=== PATIENT | male | born 1955 | race Caucasian/White ===

== ENCOUNTER → 2020-01-12 11:51 | Outpatient (CLI) | payer OTHER, SELFPAY ==
[2020-01-12 12:43] LABS: Basophils # 0.1 K/mm3 (0-0.2); Basophils % 1.1 % (0.1-2.0); Eosinophils # 0.5 K/mm3 (0.0-0.4); Eosinophils % 5.3 % (0.1-12.0); Hematocrit 49.2 % (42.0-52.0); Hemoglobin 15.9 g/dL (14.1-18.0); Lymphocytes # 2.9 K/mm3 (0.7-4.5); Lymphocytes % 30.2 % (10-50); Mean Corpuscular HGB Conc 32.3 g/dL (31.8-35.4); Mean Corpuscular Volume 89.8 fl (80-94); Mean Platelet Volume 9.1 fl (7.4-10.4); Monocytes # 0.6 K/mm3 (0.1-1.0); Monocytes % 6.2 % (1.7-9.3); Neutrophils # 5.5 K/mm3 (1.8-7.8); Neutrophils % 57.2 % (37.0-80.0); Platelet Count 205 K/mm3 (142-424); Red Blood Count 5.47 M/mm3 (4.60-6.20); Red Cell Distribution Width 14.8 % (11.5-17.5); White Blood Count 9.6 K/mm3 (4.8-10.8)
[2020-01-12 12:55] LABS: Hemoglobin A1C 8.8 % (4.0-6.0)
[2020-01-12 13:02] LABS: Alanine Aminotransferase 25 U/L (12-78); Albumin Level 3.8 g/dl (3.5-5.0); Alkaline Phosphatase 132 U/L (38-126); Anion Gap 9.1 mEq/L (5-15); Aspartate Amino Transferase 22 U/L (17-59); Bilirubin,Direct 0.1 mg/dl (0.0-0.4); Bilirubin,Indirect 0.3 mg/dL (0.0-0.9); Bilirubin,Total 0.4 mg/dl (0.2-1.3); Bilirubin,Unconjugated 0.3 mg/dL (0.0-1.1); Blood Urea Nitrogen 20 mg/dl (9-20); Calcium 10.1 mg/dl (8.4-10.2); Carbon Dioxide 29 mmol/L (22.0-30.0); Chloride 99 mmol/L (98-107); Cholesterol 217 mg/dl (140-200); Estimated Glomerular Filt Rate 75 ml/min (>60); GFR (African American) 91 ML/MIN (>60); Glucose 271 mg/dl (74-100); HDL Cholesterol 36 mg/dl (40-60); Potassium 4.1 mmoL/L (3.5-5.1); Sodium 133 mmol/L (136-145); Total Protein,Serum 7.2 g/dl (6.3-8.2); Triglycerides 397 mg/dl (30-150); VLDL Cholesterol 79 mg/dL (0-40)
[2020-01-12 13:19] LABS: Direct LDL Cholesterol 152.01 mg/dL (100-129)
[2020-01-12 13:21] LABS: Free Thyroxine Index 2.4 ug/dL (5.93-13.13); T4 (Thyroxine) 7.2 ug/dl (5.53-11.0); Triiodothryronine (T3) Uptake 34 % (23.5-40.5)
[2020-01-12 13:34] LABS: Prostate Specific Ag Screen 2.5 ng/ml (0.0-4.0)
[2020-01-12 13:35] LABS: Thyroid Stimulating Hormone 2.79 uIU/mL (0.465-4.68)
== END ==
PROVIDERS: Visit Provider Internal Medicine
DX: R06.02 Shortness of breath (principal); I25.10 Atherosclerotic heart disease of native coronary artery without angina pectoris; I11.0 Hypertensive heart disease with heart failure; I24.1 Dressler's syndrome; E78.49 Other hyperlipidemia; I25.5 Ischemic cardiomyopathy; R60.0 Localized edema; F17.200 Nicotine dependence, unspecified, uncomplicated; I50.22 Chronic systolic (congestive) heart failure; I77.9 Disorder of arteries and arterioles, unspecified; E11.9 Type 2 diabetes mellitus without complications; Z79.4 Long term (current) use of insulin
CPT/HCPCS: 36415; 80048; 80061; 80076; 83036; 84436; 84443; 84479; 85025; G0103

== ENCOUNTER → 2020-01-20 10:43 | Outpatient (CLI) | payer OTHER, SELFPAY ==
--- NOTE | 2020-01-20 | CA_ITS ---
APPROVED REPORT Exam: Pharmacologic Technologist: Gloria Mitchell Ht: 5 ft 8 in Wt: 183 lbs BSA: 1.97 m2 HR: 80 bpm BP: 112/72 mmHg Indications: Shortness of Air Medical History Medications: Lisinopril,,,,, Furosemide (LASIX),,,,, Aspirin,,,,, Atorvastatin,,,,, Carvedilol,,,,, INSULIN,,,,, DulOXETINE,,,,, Magnesium,,,,, Prasugrel,,,,, TAdalafil,,,,, Stress Test Details Test: LEXISCAN HR Resting HR: 78 bpm Max Heart Rate (APMHR): 157 bpm Max HR Achieved: 93 bpm Target HR (85% APMHR): 133 bpm % of APMHR: 59 Recovery HR: 89 bpm BP Resting BP: 112/72 mmHg Max BP: 112/72 mmHg Recovery BP: 107.0/68.0 mmHg ECG Clinical Exercise duration: 04:00 min Highest Stage Achieved: Exercise capacity: 1.0 METs Stress ECG Conclusion Resting ECG: Normal sinus rhythm, diffuse T wave abnormalities, possible strain pattern, PVC Symptoms: Shortness of air, mild nausea, no chest pain. Arrhythmias/Ectopy: Rare PVC ST-T Changes: mild exaggeration of baseline abnormalities. Conclusion: Non-diagnostic Lexiscan stress. Myoview images reported separately. Test Summary REST . . . . . . . Resting REST 04:37 . . 78 . 112/ 72 . . Stage 1 . . . . . . . Myoview Injected Stage 1 01:00 . . 82 . . . . Stage 2 01:00 . . 91 . 79/ 51 . . Stage 3 01:00 . . 93 . 95/ 66 . . Stage 4 01:00 . . 90 . 94/ 61 . Stop exercise at 04:00 RECOVERY 01:00 . . 90 . 105/ 60 . . RECOVERY 02:00 . . 90 . 105/ 60 . . RECOVERY 03:00 . . 87 . 107/ 68 . . RECOVERY 03:18 . . 91 . 107/ 68 . . Electronically signed by : Emmett Dia, 01/20/2020 22:07:06
--- NOTE | 2020-01-20 10:44 | NM_ITS ---
APPROVED REPORT Exam: Nuclear Stress Test Indication: SOB, CAD, Hx of [place], Pacemaker, HTN, DM, High cholesterol, Tobacco use, Family history Patient Location: Outpatient Stress Tech: Gloria Mitchell [place] Tech:Tanika Morse, FRANCISCO JT, RT (R)(N) Ht: 5 ft 8 in Wt: 183 lbs HR: 80 bpm BP: 112/72 mmHg BSA: 1.97 m2 BMI: 27.8 History: SOB, CAD, Hx of [place], Pacemaker, HTN, DM, High cholesterol, Tobacco use, Family history Procedure: Patient received a 0.4 mg of intravenous Lexiscan, resting heart rate 80 bpm, resting blood pressure 112/72 mmHg, with Lexiscan maximum heart rate achived was 92 bpm which is Less than 85 % of the maximum predicted heart rate and blood pressure was 79/51 mmHg. With Lexiscan, patient denied any complaint of chest pain. Electrocardiogram Resting electrocardiogram showed sinus rhythm nonspecific ST-T changes, with Lexiscan less than 1.[address] segment depression noted from the baseline EKG. The EKG portion of the Lexiscan Myoview is nondiagnostic due to baseline abnormal EKG. Cardiac Stress and Resting SPECT Images: Cardiac Stress and Resting SPECT images were obtained using technetium 99m Myoview 32.6 mCi stress and 10.53 mCi at rest. Gated SPECT with analysis of segmental wall motion and calculation of the ejection fraction also done. Cardiac stress and resting SPECT images show a fixed area of defect involving the inferior posterior basal wall consistent with area of myocardial scarring, no reversible ischemia seen. Computer derived ejection fraction is 21% with inferior wall is akinetic, rest of the myocardial segments are moderately hypokinetic. Right ventricle is mildly enlarged with normal contractility, left ventricle is dilated with stress and rest Conclusion: 1. The EKG portion of the Lexiscan Myoview is nondiagnostic. 2. Scintigraphic evidence of myocardial scarring involving the inferior posterior basal wall without significant kyler-infarct ischemia, computer derived ejection fraction is 21% with segmental wall motion abnormality described above, right ventricle is mildly dilated with normal contractility, left ventricle is dilated both stress and rest pain 3. Abnormal Lexiscan Myoview study. Electronically signed by : Emmett Dia, 01/20/2020 22:10:28
--- NOTE | 2020-01-20 12:35 | HMH.ITSHM ---
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 []TADALAFIL PRASUGREL MAGNESIUM LISINOPRIL INSULIN FUROSEMIDE DULOXETINE CARVEDILOL ATORVASTATIN ASA
--- NOTE | 2020-01-20 12:47 | CA_ITS ---
APPROVED REPORT EXAM: Comprehensive 2D, Doppler, and color-flow Echocardiogram Transit Operator: Ivonne Neff CRT Ht: 5 ft 10 in Wt: 186lbs BSA: 2.02 BP: 131/81 mmHg Indications: ischemic CM, old DE, CAD, PAD, SOB, CHF, HTN, HLD, smoker 2D Dimensions LVOT 2.14 cm (M/F) 1.5-2.5 M-Mode Dimensions RVDd 2.22 cm (0.9-2.6) LVDd 5.91 cm (3.5-5.7) LVDs 4.83 cm (3.5-5.7) IVSd 1.40 cm (0.6-1.1) PWd 0.93 cm (0.6-1.1) EF (Teich) 37.30% FS 18.30% EDV (Teich) 173.90 mL ESV (Teich) 109.10 mL LV Diastology E/A Ratio 0.61 Mitral Valve MV A Velocity 89.00 (40-130 cm/s) Left Ventricle Technically difficult study because of the patient fact in poor acoustic windows. Left atrium is mildly enlarged, left ventricle is mildly dilated, there is severe reduced left ventricular systolic function, visually estimated ejection fraction approximately 2530%, left ventricle appears to be globally hypokinetic, superimposed segmental wall motion abnormalities cannot be entirely excluded, Doppler evidence of impaired LV relaxation seen. Right Ventricle Right atrium and right ventricular normal size and contractility, there is pacemaker or an AICD lead seen in right ventricle. Aortic Valve Aortic valve is minimally thickened and fibrosed. There is no aortic stenosis aortic insufficiency. Mitral Valve Mitral valve is minimally thickened, there is mild mitral regurgitation. Tricuspid Valve There is mild tricuspid regurgitation noted. Tricuspid regurgitation jet velocity is inadequate for calculation of the right ventricular systolic pressure. Pulmonic Valve Pulmonic valve is poorly visualized. Great Vessels Aortic root is normal size. Pericardium No significant pericardial effusion noted. Conclusion 1. Technically difficult study because of the patient fact in poor acoustic windows, endocardial surfaces are poorly visualized. 2. Mildly enlarged left atrium, dilated left ventricle, severely soft ventricular systolic function, visually estimated ejection fraction 25 to 30%, left ventricle is globally hypokinetic, superimposed segmental wall motion abnormality cannot be entirely excluded. Doppler evidence of impaired LV relaxation seen, there is no tissue Doppler performed. 3. Mild mitral and tricuspid regurgitation. 4. No significant pericardial effusion noted. Electronically signed by : Emmett Dia, 01/20/2020 22:47:07
== END ==
PROVIDERS: PCP Family Medicine; Visit Provider Nurse Practitioner Family
DX: R06.02 Shortness of breath (principal); I25.10 Atherosclerotic heart disease of native coronary artery without angina pectoris; I50.22 Chronic systolic (congestive) heart failure; I77.9 Disorder of arteries and arterioles, unspecified; I24.1 Dressler's syndrome; I10 Essential (primary) hypertension; F17.200 Nicotine dependence, unspecified, uncomplicated
CPT/HCPCS: 78452; 93017; 93306; A9502; J2785

== ENCOUNTER 2020-02-04 08:09 | Day surgery (SDC) | payer OTHER, SELFPAY ==
[2020-02-04] VITALS (13 sets, daily range): BP systolic 101–150; BP diastolic 70–90; PULSE 74–84; RESP 16–18; TEMP 36.6; O2SAT 95–99; BMI 26.5
--- NOTE | 2020-02-04 | IR_ITS ---
APPROVED REPORT Patient Location: Outpatient Jeeper Operator: KATHLEEN Gomez RT (R) PROCEDURES Left heart catheterization Left ventriculogram Selective coronary angiogram Drug-eluting stent deployment to the mid LAD INDICATION Coronary artery disease, Systolic congestive heart failure, High risk abnormal Myoview Informed consent was obtained prior to the procedure. COMPLICATIONS none Estimated Blood Loss: less than 10 mls TECHNIQUE One percent lidocaine used to anesthetize the right anterior aspect of the wrist. The right radial artery was accessed via the Seldinger technique. A 6 Latvian sheath was placed in the right radial artery. 2.5 mg of verapamil, 800 mcg of nitroglycerin, 1mg Lidocaine and 5000 U Heparin were given through the arterial sheath. A Papa catheter was used to perform left heart catheterization left ventriculogram and selective coronary angiogram. At the end of the diagnostic angiogram therapeutic heparin was administered and a Choice PT extra-support wire was placed into the LAD followed by 2.75 x 26 mm resolute milagro stent deployed at 20 ashwin reducing the severe stenosis to less than 10%. ALIA-3 flow was present before and after the procedure. At the end of the procedure the apparatus was removed the sheath was removed good hemostasis was achieved using TR banding patient was transferred to the postop holding area stable condition ANGIOGRAPHIC RESULTS The left main artery Has an ostial 30% stenosis and a distal 10% stenosis The left anterior descending artery Is proximally normal followed by a concentric 80% in-stent restenotic lesion followed by an additional mid vessel 50% stenosis The circumflex artery There is a large ramus intermedius which has mild 10% proximal stenosis. The true circumflex artery is a large vessel with proximal 50% stenoses followed by an additional mid vessel 50 to 60% stenosis in between the first and second obtuse marginal artery followed by 50 to 60% stenosis and a 2 mm third obtuse marginal artery The right coronary artery Is a dominant vessel and has a stent in the proximal segment which is widely patent with minimal in-stent restenosis with excellent proximal distal transitioning. There are diffuse 10% luminal irregularities The [place] ventriculogram reveals Dilated ventricle with anterior apical hypokinesis estimated ejection fraction 2025% The left ventricular end-diastolic pressure 25 to 30 mmHg IMPRESSION Coronary artery disease as described above Successful stenting of the mid LAD severe disease reduced to less than 10% with one drug-eluting stent Persistent moderate stenosis throughout the circumflex artery as described above Left ventricular dysfunction with regional wall motion abnormality Elevated LVEDP PLAN 1. Dual antiplatelet therapy 2. Patient would likely benefit from increase and loop diuretics in order to decrease LVEDP which is certainly contributing to patient's symptoms 3. Avoidance of tobacco products 4. Cardiac rehabilitation 5. Risk factor modification 6. I would like to treat the circumflex artery medically at this time. Should patient continue to experience symptoms despite this revascularization and despite increasing in loop diuretics, we may want to consider revascularizing the circumflex artery Electronically signed by : Paxton Jackson, 02/04/2020 10:47:33
[2020-02-04 08:51] LABS: Basophils # 0.1 K/mm3 (0-0.2); Basophils % 0.8 % (0.1-2.0); Eosinophils # 0.6 K/mm3 (0.0-0.4); Eosinophils % 4.5 % (0.1-12.0); Hematocrit 50.9 % (42.0-52.0); Hemoglobin 16.7 g/dL (14.1-18.0); Lymphocytes # 3.8 K/mm3 (0.7-4.5); Lymphocytes % 27.5 % (10-50); Mean Corpuscular HGB Conc 32.8 g/dL (31.8-35.4); Mean Corpuscular Hemoglobin 29.7 pg (27.0-31.2); Mean Corpuscular Volume 90.6 fl (80-94); Mean Platelet Volume 10.1 fl (7.4-10.4); Neutrophils # 8.2 K/mm3 (1.8-7.8); Neutrophils % 60.2 % (37.0-80.0); Platelet Count 188 K/mm3 (142-424); Red Blood Count 5.62 M/mm3 (4.60-6.20); Red Cell Distribution Width 15.4 % (11.5-17.5); White Blood Count 13.6 K/mm3 (4.8-10.8)
[2020-02-04 08:52] LABS: Chloride 101 mmol/L (98-107); Sodium 134 mmol/L (136-145)
[2020-02-04 08:55] LABS: Blood Urea Nitrogen 19 mg/dl (9-20); Calcium 8.8 mg/dl (8.4-10.2); Carbon Dioxide 27 mmol/L (22.0-30.0); Creatinine Clearance Estimated 90 mL/min (50-200); Estimated Glomerular Filt Rate 75 ml/min (>60); GFR (African American) 91 ML/MIN (>60); Glucose 191 mg/dl (74-100)
[2020-02-04 13:55] LABS: CATHL Activated Clotting Time 358 SEC (74-125)
--- NOTE | 2020-02-04 15:52 | HMH.PHACLD ---
Jett Morfin has received discharge medication counseling on the following medications: PATIENT ALREADY TAKING CARVEDILOL 25 MG BID, ATORVASTATIN 5 MG DAILY, LISINOPRIL 2.5 MG DAILY, ASPIRIN 81 MG DAILY AND EFFIENT 10 MG DAILY. CHANGING LASIX FROM 20 MG QAM TO 60 MG DAILY.
== END 2020-02-04 14:48 | disposition home or self-care (01) ==
PROVIDERS: PCP Family Medicine; Visit Provider Internal Medicine
DX: I11.0 Hypertensive heart disease with heart failure (principal); I50.22 Chronic systolic (congestive) heart failure; Z95.5 Presence of coronary angioplasty implant and graft; E11.9 Type 2 diabetes mellitus without complications; I70.203 Unspecified atherosclerosis of native arteries of extremities, bilateral legs; Z72.0 Tobacco use; T82.855A Stenosis of coronary artery stent, initial encounter; Z79.4 Long term (current) use of insulin; Z79.02 Long term (current) use of antithrombotics/antiplatelets; I25.5 Ischemic cardiomyopathy; Z79.899 Other long term (current) drug therapy
CPT/HCPCS: 80048; 85025; 85347; 92928; 93458; 99152; C1725; C1769; C1876; C9600; J1644; Q9967

== ENCOUNTER → 2020-02-12 10:50 | Outpatient (CLI) | payer OTHER, SELFPAY ==
[2020-02-12 11:59] LABS: Blood Urea Nitrogen 20 mg/dl (9-20); Calcium 9.4 mg/dl (8.4-10.2); Estimated Glomerular Filt Rate 68 ml/min (>60); GFR (African American) 82 ML/MIN (>60)
[2020-02-12 13:24] LABS: Anion Gap 16.6 mEq/L (5-15); Carbon Dioxide 28 mmol/L (22.0-30.0); Potassium 4.6 mmoL/L (3.5-5.1); Sodium 137 mmol/L (136-145)
[2020-02-12 13:25] LABS: Chloride 97 mmol/L (98-107)
[2020-02-12 13:52] LABS: Glucose 424 mg/dl (74-100)
== END ==
PROVIDERS: Visit Provider Nurse Practitioner Family
DX: I11.0 Hypertensive heart disease with heart failure (principal); R06.02 Shortness of breath; R60.0 Localized edema; I50.22 Chronic systolic (congestive) heart failure; I25.5 Ischemic cardiomyopathy; I25.10 Atherosclerotic heart disease of native coronary artery without angina pectoris; E11.69 Type 2 diabetes mellitus with other specified complication; E78.49 Other hyperlipidemia; I77.9 Disorder of arteries and arterioles, unspecified; F17.200 Nicotine dependence, unspecified, uncomplicated; Z79.4 Long term (current) use of insulin
CPT/HCPCS: 36415; 80048

== ENCOUNTER 2020-05-18 19:23 | Observation (INO) | payer OTHER, MEDICARE, SELFPAY ==
[2020-05-18] VITALS (7 sets, daily range): BP systolic 107–166; BP diastolic 66–89; PULSE 80–95; RESP 15–20; TEMP 36.6–37; O2SAT 94–98; BMI 25.4; BMI 26.2
--- NOTE | 2020-05-18 19:16 | ECG_ITS ---
APPROVED REPORT Exam: Resting ECG HR:92 bpm ECG Measurements Heart Rate 92 AXES ND 160 P 57 QRSd 86 QRS 3 QT 392 T 161 QTc 484 Conclusion Sinus rhythm with occasional premature ventricular complexes ST & T wave abnormality, consider lateral ischemia Prolonged QT Abnormal ECG Electronically signed by : Patrick Garcia, 05/21/2020 13:54:59
--- NOTE | 2020-05-18 19:33 | XR_ITS ---
PROCEDURE: XR CHEST 2V CLINICAL HISTORY: SOB, chest pain COMPARISON: No exams were available for comparison FINDINGS: Normal heart size. There is a bipolar pacemaker present from left subclavian approach. There are atelectatic changes in the right perihilar region and there is some mild thickening of the right minor fissure. Trace bilateral effusions are noted. There is prominence of the interstitium. Patchy density noted in the right infrahilar region. No acute bony abnormalities. IMPRESSION: Prominent interstitial markings. There are no previous exams available to determine if this is chronic or acute. Interstitial lung disease, interstitial pneumonitis, or smoking related lung disease is a consideration. There are atelectatic changes in the right perihilar region and there are trace bilateral effusions. There is increased density in the right infrahilar region possibly due to an area of infiltrate. Suggest following till clear. Chest CT with contrast may provide further evaluation if clinically warranted. Dictated by: David Fernando MD 05/19/2020 05:20 David Fernando MD in [place] 05/19/2020 05:20
[2020-05-18 19:50] LABS: Basophils # 0.1 K/mm3 (0-0.2); Basophils % 0.7 % (0.1-2.0); Eosinophils # 0.4 K/mm3 (0.0-0.4); Eosinophils % 4.6 % (0.1-12.0); Hematocrit 43.5 % (42.0-52.0); Hemoglobin 13.3 g/dL (14.1-18.0); Lymphocytes # 2.1 K/mm3 (0.7-4.5); Lymphocytes % 23.8 % (10-50); Mean Corpuscular HGB Conc 30.6 g/dL (31.8-35.4); Mean Corpuscular Volume 94.8 fl (80-94); Mean Platelet Volume 9.4 fl (7.4-10.4); Monocytes # 0.5 K/mm3 (0.1-1.0); Neutrophils # 5.8 K/mm3 (1.8-7.8); Neutrophils % 64.9 % (37.0-80.0); Platelet Count 249 K/mm3 (142-424); Red Blood Count 4.59 M/mm3 (4.60-6.20); Red Cell Distribution Width 14.8 % (11.5-17.5); White Blood Count 8.9 K/mm3 (4.8-10.8)
[2020-05-18 19:53] LABS: Chloride 98 mmol/L (98-107)
[2020-05-18 19:54] LABS: Potassium 4.1 mmoL/L (3.5-5.1); Sodium 136 mmol/L (136-145)
[2020-05-18 19:56] LABS: Blood Urea Nitrogen 16 mg/dl (9-20); Creatinine Clearance Estimated 80 mL/min (50-200); Estimated Glomerular Filt Rate 68 ml/min (>60); GFR (African American) 82 ML/MIN (>60)
[2020-05-18 19:57] LABS: Anion Gap 11.1 mEq/L (5-15); Calcium 8.9 mg/dl (8.4-10.2); Carbon Dioxide 31 mmol/L (22.0-30.0); Glucose 384 mg/dl (74-100)
[2020-05-18 20:06] LABS: NT Pro Brain Natriuretic Pep. 1690 pg/mL (0-125)
[2020-05-18 20:13] LABS: Troponin I < 0.01 ng/ml (0.00-0.034)
[2020-05-18 20:26] LABS: Coronavirus 19 IgG Antibody Negative (Negative); Coronavirus 19 IgM Antibody Negative (Negative)
--- NOTE | 2020-05-18 20:27 | HMH.EDSOB ---
ED Disposition Clinical Impression: Congestive heart failure Qualifiers: Heart failure type: unspecified Heart failure chronicity: unspecified Qualified Code(s): I50.9 - Heart failure, unspecified Diabetes mellitus Qualifiers: Diabetes mellitus type: type 1 Diabetes mellitus complication status: with other specified complication Qualified Code(s): E10.69 - Type 1 diabetes mellitus with other specified complication Chest pain Qualifiers: Chest pain type: precordial pain Qualified Code(s): R07.2 - Precordial pain Disposition: Admitted as Observation Condition on Discharge: Good Referrals: Vinh Munoz [Primary Care Provider] - - Critical Care Critical Care Time: No Attestation: On 05/18/20, the high probability of a clinically significant, sudden or life threatening deterioration of the following system(s) required my full and direct attention, intervention and personal management. The time I documented below is in addition to time spent performing reported procedures but includes the following listed in this critical care notation. Medical Decision Making - Medical Records Medical records reviewed: Yes: I reviewed the patient's medical records. - [place] Inquiry Pt receiving controlled substance: No Vital Signs: 05/18/20 19:23 Temperature 97.9 F Temperature Source Oral Pulse Rate [Left Radial] 95 H Respiratory Rate 16 Blood Pressure [Right Arm] 166/87 H Blood Pressure Mean [Right Arm] 113 Blood Pressure Source [Right Arm] Automatic Cuff Blood Pressure Position [Right Arm] Sitting 02 Sat by Pulse Oximetry 98 Oxygen Delivery Method Room Air - Lab Data Lab results reviewed: Yes: I reviewed the patient's lab results. Lab Results 05/18/20 19:41: WBC 8.9, RBC 4.59 L, Hgb 13.3 L, Hct 43.5, MCV 94.8 H, MCH 29.0, MCHC 30.6 L, RDW 14.8, Plt Count 249, MPV 9.4, Neut % (Auto) 64.9, Lymph % (Auto) 23.8, [place] % (Auto) 6.0, Eos % (Auto) 4.6, Baso % (Auto) 0.7, Neut # (Auto) 5.8, Lymph # (Auto) 2.1, [place] # (Auto) 0.5, Eos # (Auto) 0.4, Baso # (Auto) 0.1 05/18/20 19:41: Sodium 136, Potassium 4.1, Chloride 98, Carbon Dioxide 31 H, Anion Gap 11.1, BUN 16, Creatinine 1.10, Estimated Creat Clear 80, Estimated GFR 68, Est GFR ( Amer) 82, Glucose 384 H, Calcium 8.9, Troponin I < 0.01 05/18/20 19:41: NT-Pro-B Natriuret Pep 1690 H 05/18/20 19:41: SARS-CoV-2 IgG Ab (Rapid) Negative, SARS-CoV-2 IgM Ab (Rapid) Negative Result diagrams: 05/18/20 19:41 05/18/20 19:41 Orders (Tests/Meds): ED MEDICATIONS Discontinued Medications Generic Name Dose Route Start Last Admin Trade Name Freq PRN Reason Stop Dose Admin Aspirin 243 mg 05/18/20 19:45 05/18/20 19:58 Aspirin 81mg Chewable Tablet PO 05/18/20 19:46 243 mg ONCE ONE Administration Furosemide 40 mg 05/18/20 20:18 05/18/20 20:43 Furosemide 40mg/4ml Vial IV 05/18/20 20:19 40 mg ONCE ONE Administration Nitroglycerin 1 gm 05/18/20 20:40 05/18/20 20:43 Nitroglycerin 1 Gm Ointment TD 05/18/20 20:41 1 gm ONCE ONE Administration ORDERS Category Date Time Status XR chest 2V Stat Exams 05/18/20 19:33 Taken Troponin I Q3H Lab 05/18/20 22:45 Ordered Troponin I Q3H Lab 05/19/20 01:45 Ordered - Radiology Data #1 Image(s): Chest Image Reviewed: Yes I reviewed the patient's radiology image Preliminary Findings: Abnormal (chf) - ECG Data Tracing #1 Normal Sinus Rhythm: Yes Ischemic changes: non-specific ST-T wave changes - Physician Consults Physician Consulted: mary Reason -: Admission - ISMAEL Score for Non-Stemi Age of Patient: 60-69 years old Heart Rate: 90-109 bpm Systolic Blood Pressure: 160-199 mmHg Serum Creatinine: 0.80-1.19 mg/dl CHF [place] Class: II-Pulmonary Rales or Jug Other Risk Factors: None Non-Stemi Risk Score: 110 Resp/SOB HPI - General Chief Complaint: Shortness of Breath/Dyspnea Stated Complaint: chest pain, SOB Time Seen by Provider: 05/18/20 20:00 Mode of Arrival:
--- NOTE | 2020-05-18 20:46 | PC.NURSE ---
speaking with Dr. Andersen for admission.
--- NOTE | 2020-05-18 20:53 | PC.NURSE ---
stated to give pt low intensity scale dose of insulin for glucose treatment at this time. per low intensity scale pt will receive 10 units SQ
--- NOTE | 2020-05-18 21:51 | PC.NURSE ---
PT ARRIVEED TO THE FLOOR VIA W/C W/STAFF FROM ED @9273
--- NOTE | 2020-05-18 22:23 | HMH.HP ---
*Admission Date: 05/18/20 *Chief complaint: Chest pain *History of present illness: This 64-year-old white male has known coronary artery disease and was admitted through the emergency room with chest pain. His primary care doctor is Dr. Munoz in [place]. Dr. 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 The patient states that he fell 7 days ago and has been somewhat short of breath ever since. He developed chest pain today and came to the emergency room. He feels like he has been having some swelling. He takes 60 mg of Lasix daily. He had a heart attack in 2013 and received 3 stents he states. For 5 weeks ago he received another stent by Dr. Jackson. He continues to smoke 1 pack of cigarettes per day. Significant recent history includes an infected right foot. He has diabetic neuropathy. He has been going to [place] for attention to this foot. He states Dr. Morataya in [place] is caring for his foot infection. He has also seen Dr. Meek at in [place]. [facility] History Medical History: Reports:: Cardiomyopathy, Carotid Stenosis, Coronary Artery Disease, Diabetes Mellitus Type 2, Hyperlipidemia, Hypertension, Internal Pacemaker, Peripheral Artery Disease Denies:: Cancer, Diabetes Mellitus Type 1, MRSA, Seizures *Have you ever received a pneumonia vaccine?: No *Have you received a flu vaccine this season?: No Other Surgeries: Yes: Angioplasty, Cardiac Catheterization, Cholecystectomy, Coronary Stent, Pacemaker Amputation: No Fractures: No - *Social History Smoking Status: Current every day smoker Tobacco Type: cigarettes # Packs/Day (cigarettes): 1 Alcohol Intake: never *Occupational Status:: unemployed Housing: house Household Members: spouse *Travel in the last 8 weeks: None Family Hx:: Coronary Artery Disease (Both parents), Diabetes (His mother), Heart Attack (Brother ), Hypertension, Other Review of Systems - *Neurologic Denies localized weakness, Denies seizure-like activity Meds Home Medications Medication Instructions Recorded Confirmed Type aspirin 81 mg tablet,delayed 81 mg PO DAILY tab 12/26/17 05/18/20 History release carvedilol 25 mg tablet 25 mg PO BID 12/26/17 05/18/20 History duloxetine 60 mg capsule,delayed 60 mg PO DAILY cap 12/26/17 05/18/20 History release lisinopril 2.5 mg tablet 2.5 mg PO DAILY tab 12/26/17 05/18/20 History magnesium oxide 400 mg (241.3 mg 400 mg PO DAILY tab 12/26/17 05/18/20 History magnesium) tablet prasugrel 10 mg tablet 10 mg PO DAILY tab 12/26/17 05/18/20 History tadalafil 5 mg tablet 5 mg PO DAILY PRN tab 12/26/17 05/18/20 History insulin glargine 100 unit/mL 80 unit SUB-Q QHS ml 12/27/17 05/18/20 History subcutaneous solution empagliflozin 25 mg tablet 25 mg PO DAILY 01/26/20 05/18/20 History Atorvastatin Calcium [Lipitor 10mg 5 mg PO DAILY 02/04/20 05/18/20 History Tab] furosemide 20 mg tablet 60 mg PO QAM tab 02/12/20 05/18/20 History Allergies Allergy/AdvReac Type Severity Reaction Status Date / Time No Known Allergies Allergy Verified 02/12/20 10:29 Exam Vital signs and Labs for Last 24 Hours: Temp Pulse Resp BP Pulse Ox 98.6 F 81 16 127/78 95 05/18/20 21:45 05/18/20 21:45 05/18/20 21:45 05/18/20 21:45 05/18/20 21:00 Laboratory Results - last 24 hr 05/18/20 19:41: WBC 8.9, RBC 4.59 L, Hgb 13.3 L, Hct 43.5, MCV 94.8 H, MCH 29.0, MCHC 30.6 L, RDW 14.8, Plt Count 249, MPV 9.4, Neut % (Auto) 64.9, Lymph % (Auto) 23.8, [place] % (Auto) 6.0, Eos % (Auto) 4.6, Baso % (Auto) 0.7, Neut # (Auto) 5.8, Lymph # (Auto) 2.1, [place] # (Auto) 0.5, Eos # (Auto) 0.4, Baso # (Auto) 0.1 05/18/20 19:41: Sodium 136, Potassium 4.1, Chloride 98, Carbon Dioxide 31 H, Anion Gap 11.1, BUN 16, Creatinine 1.10, Estimated Creat Clear 80, Estimated GFR 68, Est GFR ( Amer) 82, Glucose 384 H, Calcium 8.9, Troponin I < 0.01 05/18/20 19:41: NT-Pro-B Natriuret Pep 1690 H 05/18/20 19:41: SARS-CoV-2 IgG Ab (Rapid) Negative, SARS-CoV-2 IgM Ab (Rap
[2020-05-18 22:58] LABS: Troponin I < 0.01 ng/ml (0.00-0.034)
[2020-05-18 23:20] LABS: POC Glucose,Bedside 267 (70-110)
[2020-05-19] VITALS (7 sets, daily range): BP systolic 113–151; BP diastolic 58–75; PULSE 70–85; RESP 18–22; TEMP 36.4–36.8; O2SAT 92–99; BMI 26.0; BMI 25.9
[2020-05-19 01:51] LABS: Troponin I < 0.01 ng/ml (0.00-0.034)
[2020-05-19 05:28] LABS: POC Glucose,Bedside 224 (70-110)
--- NOTE | 2020-05-19 06:53 | PC.NURSE ---
Pt is alert and oriented x4. Pt rested well with eyes closed this shift with no complaints. Denies pain when asked. PERRLA. Bilateral hand dampproofer noted equal and strong. cap refill < 3 seconds. Bilateral lungs noted clear upon initial assessment. Audible wheezing noted this AM. Denies SOA. Tolerated RA well with no complaints. O2 sats > 92%. Active bowel sounds. Adequate urine output noted, urinal at bedside. Tolerates amb well independently. Remains NPO since 0000. Refused teds. No edema. NSR with PVC and prolonged QT interval noted on data manager this shift. VSS. Call light within reach. Remains safe with at bedside. Will continue to monitor.
--- NOTE | 2020-05-19 07:31 | P.CONPHA_ITS ---
[facility] VTE Monitoring - Patient Demographics Admission date: 05/18/20 Report Date: 05/19/20 Time: 07:31 Allergies/Adverse Reactions: Patient Allergies No Known Allergies Allergy (Verified 02/12/20 10:29) Height: 1.8 m Weight: 84.482 kg Patient Problems: Current Active Problems Congestive heart failure (Acute) Chest pain (Acute) Diabetes mellitus (Acute) SOB (shortness of breath) (Acute) Edema (Acute) CAD (coronary artery disease) (Chronic) Tobacco dependence syndrome (Acute) - VTE Risk Labs: VTE Related Lab Results Hgb 13.3 g/dL (14.1-18.0) L 05/18/20 19:41 Hct 43.5 % (42.0-52.0) 05/18/20 19:41 Plt Count 249 K/mm3 (142-424) 05/18/20 19:41 BUN 16 mg/dl (9-20) 05/18/20 19:41 Creatinine 1.10 mg/dl (0.66-1.25) 05/18/20 19:41 Estimated Creat Clear 80 mL/min (50-200) 05/18/20 19:41 Was VTE Risk Assessment Performed: Yes VTE Score: 4 VTE Risk Level: Low Risk - Prophylaxis VTE Prophylaxis Ordered?: Yes Types of VTE Prophylaxis: TEDS Knee High Location of Applied Device: Bilateral Lower Extremeties
[2020-05-19 07:33] LABS: Basophils # 0.1 K/mm3 (0-0.2); Eosinophils # 0.5 K/mm3 (0.0-0.4); Eosinophils % 4.7 % (0.1-12.0); Lymphocytes # 2.8 K/mm3 (0.7-4.5); Lymphocytes % 26.6 % (10-50); Mean Corpuscular Volume 93.4 fl (80-94); Mean Platelet Volume 8.7 fl (7.4-10.4); Monocytes # 0.8 K/mm3 (0.1-1.0); Monocytes % 7.1 % (1.7-9.3); Neutrophils # 6.4 K/mm3 (1.8-7.8); Neutrophils % 60.8 % (37.0-80.0); Platelet Count 256 K/mm3 (142-424); Red Cell Distribution Width 14.8 % (11.5-17.5); White Blood Count 10.6 K/mm3 (4.8-10.8)
[2020-05-19 07:40] LABS: Chloride 100 mmol/L (98-107); Sodium 138 mmol/L (136-145)
[2020-05-19 07:41] LABS: Potassium 4.3 mmoL/L (3.5-5.1)
[2020-05-19 07:44] LABS: Anion Gap 7.3 mEq/L (5-15); Blood Urea Nitrogen 19 mg/dl (9-20); Carbon Dioxide 35 mmol/L (22.0-30.0); Creatinine Clearance Estimated 90 mL/min (50-200); Estimated Glomerular Filt Rate 75 ml/min (>60); GFR (African American) 91 ML/MIN (>60); Glucose 218 mg/dl (74-100); Magnesium 1.6 mg/dl (1.6-2.3)
--- NOTE | 2020-05-19 08:00 | CA_ITS ---
APPROVED REPORT EXAM: Comprehensive 2D, Doppler, and color-flow Echocardiogram Nutrition Aides Teacher: Ivonne Neff CRT Ht: 5 ft 11 in Wt: 182lbs BSA: 2.03 BP: 130/80 mmHg Indications: Chest Pain, Shortness of Breath, Peripheral Edema, CAD, Hyperlipidemia, Hypertension/HDD, CM, stents, pacer 2D Dimensions LVOT 1.77 cm (M/F) 1.5-2.5 M-Mode Dimensions RVDd 3.04 cm (0.9-2.6) LVDd 7.45 cm (3.5-5.7) LVDs 6.85 cm (3.5-5.7) IVSd 0.80 cm (0.6-1.1) PWd 0.44 cm (0.6-1.1) EF (Teich) 17.30% FS 8.10% EDV (Teich) 293.90 mL ESV (Teich) 243.20 mL LV Diastology E/A Ratio 2.02 Mitral Valve MV A Velocity 56.00 (40-130 cm/s) Left Ventricle Technically difficult study because of the patient factors and poor acoustic windows. Left atrium is mildly enlarged, left ventricle is mildly dilated, there is severe reduced left ventricular systolic function, visually estimated ejection fraction probably 30%, left ventricle is globally hypokinetic, superimposed segmental wall motion abnormality cannot be excluded, a repeat study with Definity contrast is recommended. Diastolic parameters are inconclusive. Right Ventricle Right atrium and right ventricle are mildly enlarged with normal contractility, there is an AICD lead seen in right ventricle. Aortic Valve Aortic valve is minimally thickened and fibrosed, there is no aortic stenosis or aortic insufficiency. Mitral Valve Mitral valve leaflets are minimally thickened, there is mild mitral regurgitation. Tricuspid Valve Tricuspid valve is grossly normal, there is mild tricuspid regurgitation, tricuspid regurgitation jet velocity is inadequate for calculation of the right ventricular systolic pressure. Pulmonic Valve Pulmonic valve is poorly visualized. Great Vessels Aortic root is normal size. Pericardium No significant pericardial effusion noted. Conclusion 1. Mildly enlarged left atrium, mildly dilated left ventricle, severe reduced left ventricular systolic function, visually estimated ejection fraction approximately 30%, left ventricle is globally hypokinetic. Diastolic parameters are inconclusive. Superimposed segmental wall motion abnormalities cannot be entirely excluded, a repeat study with Definity contrast is recommended. 2. Mildly enlarged right ventricle with normal contractility. 3. Mild mitral and tricuspid regurgitation. 4. No significant pericardial effusion noted. Electronically signed by : Emmett Dia, 05/20/2020 14:26:21
--- NOTE | 2020-05-19 08:17 | HMH.ACPN2 ---
Internal Medicine - PN: Subj *Date: 05/19/20 *Time: 08:27 Interval history: Patient states he did sleep some during the night. He has had no further chest pain. He states his breathing is good. He is n.p.o. for cardiology consult this morning. Exam Vital signs and Labs for Last 24 Hours: Temp Pulse Resp BP Pulse Ox 97.9 F 80 22 118/67 95 05/19/20 04:00 05/19/20 04:00 05/19/20 04:00 05/19/20 04:00 05/19/20 04:00 Laboratory Results - last 24 hr 05/18/20 19:41: WBC 8.9, RBC 4.59 L, Hgb 13.3 L, Hct 43.5, MCV 94.8 H, MCH 29.0, MCHC 30.6 L, RDW 14.8, Plt Count 249, MPV 9.4, Neut % (Auto) 64.9, Lymph % (Auto) 23.8, [place] % (Auto) 6.0, Eos % (Auto) 4.6, Baso % (Auto) 0.7, Neut # (Auto) 5.8, Lymph # (Auto) 2.1, [place] # (Auto) 0.5, Eos # (Auto) 0.4, Baso # (Auto) 0.1 05/18/20 19:41: Sodium 136, Potassium 4.1, Chloride 98, Carbon Dioxide 31 H, Anion Gap 11.1, BUN 16, Creatinine 1.10, Estimated Creat Clear 80, Estimated GFR 68, Est GFR ( Amer) 82, Glucose 384 H, Calcium 8.9, Troponin I < 0.01 05/18/20 19:41: NT-Pro-B Natriuret Pep 1690 H 05/18/20 19:41: SARS-CoV-2 IgG Ab (Rapid) Negative, SARS-CoV-2 IgM Ab (Rapid) Negative 05/18/20 22:24: Troponin I < 0.01 05/18/20 23:12: POC Glucose 267 H 05/19/20 01:15: Troponin I < 0.01 05/19/20 05:17: POC Glucose 224 H 05/19/20 07:00: WBC 10.6, RBC 4.50 L, Hgb 13.0 L, Hct 42.0, MCV 93.4, MCH 29.0, MCHC 31.0 L, RDW 14.8, Plt Count 256, MPV 8.7, Neut % (Auto) 60.8, Lymph % (Auto) 26.6, [place] % (Auto) 7.1, Eos % (Auto) 4.7, Baso % (Auto) 1.0, Neut # (Auto) 6.4, Lymph # (Auto) 2.8, [facility] # (Auto) 0.8, Eos # (Auto) 0.5 H, Baso # (Auto) 0.1 05/19/20 07:00: Sodium 138, Potassium 4.3, Chloride 100, Carbon Dioxide 35 H, Anion Gap 7.3, BUN 19, Creatinine 1.00, Estimated Creat Clear 90, Estimated GFR 75, Est GFR ( Amer) 91, Glucose 218 H D, Calcium 9.0, Magnesium 1.6 I & O for Last 24 hours: Intake & Output 05/16/20 05/17/20 05/18/20 05/19/20 11:59 11:59 11:59 11:59 Intake Total 333 / 333 Output Total 550 / 550 Balance -217 / -217 Weight 186 lb 4 oz - Constitutional no acute distress - *Routine Respiratory Exam Present: CTA bilaterally (Anteriorly and posteriorly) - *Routine Cardiovascular Exam Present: RRR Comments: Monitor showing sinus rhythm. - *Routine Abdominal Exam Present: soft, normoactive bowel sounds. Absent: tenderness, distended - *Routine Extremities Exam Absent: edema, calf tenderness Comments: Wound on his right foot. - *Routine Neurological Exam Present: alert, oriented X3 Assessment and Plan (1) Chest pain Status: Acute Qualifiers: Chest pain type: precordial pain Qualified Code(s): R07.2 - Precordial pain Category: Medical Code(s): R07.9 - Chest pain, unspecified (2) Congestive heart failure Status: Acute Qualifiers: Heart failure type: unspecified Heart failure chronicity: unspecified Qualified Code(s): I50.9 - Heart failure, unspecified Category: Medical Code(s): I50.9 - Heart failure, unspecified (3) Diabetes mellitus Status: Acute Qualifiers: Diabetes mellitus type: type 1 Diabetes mellitus complication status: with other specified complication Qualified Code(s): E10.69 - Type 1 diabetes mellitus with other specified complication Category: Medical Code(s): E11.9 - Type 2 diabetes mellitus without complications (4) Edema Status: Acute Qualifiers: Edema type: localized Qualified Code(s): R60.0 - Localized edema Category: Medical Code(s): R60.9 - Edema, unspecified (5) SOB (shortness of breath) Status: Acute Category: Medical Code(s): R06.02 - Shortness of breath (6) Tobacco dependence syndrome Status: Acute Category: Medical Code(s): F17.200 - Nicotine dependence, unspecified, uncomplicated (7) CAD (coronary artery disease) Status: Chronic Qualifiers: Coronary Disease-Associated Artery/Lesion type: tling[place] & ha[place] artery Linda
--- NOTE | 2020-05-19 09:01 | HMH.CNCARD ---
History of Present Illness Consult date: 05/19/20 Requesting physician: Ana Andersen Consult reason: chest pain, shortness of breath Chief complaint: chest pain and shortness of breath History of present illness: This is a 64-year-old white gentleman who was admitted to the hospital with chest pain and shortness of breath. The patient states over the last several days he has been progressively more short of breath and had associated lower extremity edema. He states he fell approximately 7 days ago and has been short of breath ever since that time. He states it is worse with exertion and does improve with rest. He states that despite taking his diuretics he continued to be more short of breath and his weight at home went from 182 pounds to 197 pounds. Yesterday he began having pressure in his chest. He states that this did not radiate. He states that the pressure was occurring when he was significantly short of breath. It did improve with rest. He states that his chest pain resolved last night and he has not had any chest pain since that time. Patient does have a history of ischemic cardiomyopathy with an ejection fraction around 25% on last echocardiogram in January of this year. The patient does have a history of coronary artery disease with stenting approximately 5 weeks ago. His troponins are negative and he is ruled out for an HI. He does continue to smoke 1 pack/day. He does have an infected right foot, for which she is following with Dr. Morataya in [place]. The patient states this morning he is feeling much better. His chest pain and pressure have resolved. He is still short of breath with exertion. He denies any fever, chills, nausea, vomiting, diarrhea. [facility] History I have reviewed the patient's past medical history: Yes Medical History: Reports:: Cardiomyopathy, Carotid Stenosis, Congestive Heart Failure, Coronary Artery Disease, Diabetes Mellitus Type 2, Hyperlipidemia, Hypertension, Internal Pacemaker, Myocardial Infarction, Peripheral Artery Disease Denies:: Cancer, Diabetes Mellitus Type 1, MRSA, Seizures *Have you ever received a pneumonia vaccine?: No *Have you received a flu vaccine this season?: No (Adverse reaction to flu vaccine, arm goes numb for weeks.) Other Medical History: Reports: Cataracts Other Surgeries: Yes: Angioplasty, Cardiac Catheterization, Cholecystectomy, Colonoscopy, Coronary Stent, Pacemaker Amputation: No Fractures: No - *Social History Last grade of school completed: 11th or 12th Smoking Status: Current every day smoker Tobacco Type: cigarettes # Packs/Day (cigarettes): 1 Alcohol Intake: never *Occupational Status:: disabled Housing: other Household Members: spouse *Travel in the last 8 weeks: None Family Hx:: Cancer, Diabetes, Heart Attack, Hyperlipidemia, Hypertension, Stroke Meds Home Medications Medication Instructions Recorded Confirmed Type aspirin 81 mg tablet,delayed 81 mg PO DAILY tab 12/26/17 05/18/20 History release carvedilol 25 mg tablet 25 mg PO BID 12/26/17 05/18/20 History duloxetine 60 mg capsule,delayed 60 mg PO DAILY cap 12/26/17 05/18/20 History release lisinopril 2.5 mg tablet 2.5 mg PO DAILY tab 12/26/17 05/18/20 History magnesium oxide 400 mg (241.3 mg 400 mg PO DAILY tab 12/26/17 05/18/20 History magnesium) tablet prasugrel 10 mg tablet 10 mg PO DAILY tab 12/26/17 05/18/20 History insulin glargine 100 unit/mL 60 unit SQ BID ml 12/27/17 05/19/20 History subcutaneous solution empagliflozin 25 mg tablet 25 mg PO DAILY 01/26/20 05/18/20 History Atorvastatin Calcium [Lipitor 10mg 5 mg PO DAILY 02/04/20 05/18/20 History Tab] furosemide 20 mg tablet 60 mg PO QAM tab 02/12/20 05/18/20 History Allergies Allergy/AdvReac Type Severity Reaction Status Date / Time No Known Allergies Allergy Verified 02/12/20 10:29 Exam Vital signs and Labs for Last 24 Hours: Temp Pulse Resp BP Pulse Ox 97.9 F 80 22 118/67 95 05/19/20
--- NOTE | 2020-05-19 09:58 | HMH.PHAINT ---
HOME MEDICATION RECONCILIATION COMPLETED USING LIST FROM [facility]
--- NOTE | 2020-05-19 12:42 | PC.NURSE ---
Spoke with Nitza and requested diet order a this time since pt isnt having heart cath today.
--- NOTE | 2020-05-19 12:45 | PC.NURSE ---
Spoke with Dr. Grissom office and received order for cardiac diet.
[2020-05-19 12:53] LABS: POC Glucose,Bedside 251 (70-110)
[2020-05-19 20:37] LABS: POC Glucose,Bedside 306 (70-110)
--- NOTE | 2020-05-21 08:53 | HMH.DCSUM ---
General - General Admission date:: 05/18/20 Discharge date: 05/19/20 HPI HPI: This 64-year-old white male was noted to have known coronary artery disease and was admitted through the emergency room with chest pain. His primary care doctor is Dr. Munoz in [place]. Dr. Jackson is his field software engineer. The patient stated that he fell 7 days ago and had been somewhat short of breath ever since. He developed chest pain and came to the emergency room. He felt like he had some swelling. He was taking 60 mg of Lasix daily. He had a heart attack in 2013 and received 3 stents. 5 weeks ago he received another stent by Dr. Jackson. He continued to smoke 1 pack of cigarettes per day. Significant recent history included an infected right foot. He has diabetic neuropathy. He has been going to [place] for attention to this foot. He stated Dr. Morataya in [place] was caring for his foot infection. He has also seen Dr. Meek in [place]. Hospital Course Hospital Course: After admission patient had no further chest pain. EKG showed a sinus rhythm with some lateral ST-T wave abnormalities and no acute changes. He was seen by cardiology. Cardiology felt troponin I's were noted to be normal. He was felt to have acute on chronic systolic congestive heart failure. He was noted to have an increase in his weight from 182 to 197 pounds at home with elevated BNP consistent with acute exacerbation of his chronic systolic congestive heart failure. IV fluids were stopped and he was put on Lasix 40 mg twice a day for diuresis. Cardiology felt his coronary artery disease was likely stable and no cardiac cath was necessary. He was on a beta bile genaro for his ischemic cardiomyopathy with ejection fraction of about 20%. Lisinopril was discontinued and he was to start Entresto 24/26 mg twice daily secondary to his chronic systolic congestive heart failure. He was again advised about tobacco cessation. On 05/19/2020 patient was discharged home in stable and satisfactory condition. He was to follow-up with Dr. Jackson in 1 week. Medications as per medication reconciliation sheet and as directed by cardiology. Objective Vital signs: Temp Pulse Resp BP Pulse Ox 97.8 F 80 18 120/75 98 05/19/20 16:00 05/19/20 16:00 05/19/20 16:00 05/19/20 16:00 05/19/20 16:00 Narrative: Exam Vital signs and Labs for Last 24 Hours: Temp Pulse Resp BP Pulse Ox 97.9 F 80 22 118/67 95 05/19/20 04:00 05/19/20 04:00 05/19/20 04:00 05/19/20 04:00 05/19/20 04:00 Laboratory Results - last 24 hr 05/18/20 19:41: WBC 8.9, RBC 4.59 L, Hgb 13.3 L, Hct 43.5, MCV 94.8 H, MCH 29.0, MCHC 30.6 L, RDW 14.8, Plt Count 249, MPV 9.4, Neut % (Auto) 64.9, Lymph % (Auto) 23.8, [place] % (Auto) 6.0, Eos % (Auto) 4.6, Baso % (Auto) 0.7, Neut # (Auto) 5.8, Lymph # (Auto) 2.1, [place] # (Auto) 0.5, Eos # (Auto) 0.4, Baso # (Auto) 0.1 05/18/20 19:41: Sodium 136, Potassium 4.1, Chloride 98, Carbon Dioxide 31 H, Anion Gap 11.1, BUN 16, Creatinine 1.10, Estimated Creat Clear 80, Estimated GFR 68, Est GFR ( Amer) 82, Glucose 384 H, Calcium 8.9, Troponin I < 0.01 05/18/20 19:41: NT-Pro-B Natriuret Pep 1690 H 05/18/20 19:41: SARS-CoV-2 IgG Ab (Rapid) Negative, SARS-CoV-2 IgM Ab (Rapid) Negative 05/18/20 22:24: Troponin I < 0.01 05/18/20 23:12: POC Glucose 267 H 05/19/20 01:15: Troponin I < 0.01 05/19/20 05:17: POC Glucose 224 H 05/19/20 07:00: WBC 10.6, RBC 4.50 L, Hgb 13.0 L, Hct 42.0, MCV 93.4, MCH 29.0, MCHC 31.0 L, RDW 14.8, Plt Count 256, MPV 8.7, Neut % (Auto) 60.8, Lymph % (Auto) 26.6, [place] % (Auto) 7.1, Eos % (Auto) 4.7, Baso % (Auto) 1.0, Neut # (Auto) 6.4, Lymph # (Auto) 2.8, [place] # (Auto) 0.8, Eos # (Auto) 0.5 H, Baso # (Auto) 0.1 05/19/20 07:00: Sodium 138, Potassium 4.3, Chloride 100, Carbon Dioxide 35 H, Anion Gap 7.3, BUN 19, Creatinine 1.00, Estimated Creat Clear 90, Estimated GFR 75, Est GFR ( Amer) 91, Glucose 218 H D, Calciu
--- NOTE | 2020-05-21 12:25 | PC.NURSE ---
Photos being uploaded on by myself were obtained by Jaz Huston RN during skin assessment
== END 2020-05-19 19:15 | disposition home or self-care (01) ==
LOC: ER 20:59 → 2ND 21:10
PROVIDERS: Emergency Medicine; Admitting Provider Family Medicine; Emergency Provider Emergency Medicine; PCP Family Medicine; Visit Provider Family Medicine
DX: R07.9 Chest pain, unspecified (principal); I50.23 Acute on chronic systolic (congestive) heart failure; I11.0 Hypertensive heart disease with heart failure; Z95.5 Presence of coronary angioplasty implant and graft; Z95.0 Presence of cardiac pacemaker; Z72.0 Tobacco use; I25.10 Atherosclerotic heart disease of native coronary artery without angina pectoris; Z79.4 Long term (current) use of insulin; E78.5 Hyperlipidemia, unspecified; Z79.01 Long term (current) use of anticoagulants; Z79.82 Long term (current) use of aspirin; E11.42 Type 2 diabetes mellitus with diabetic polyneuropathy
CPT/HCPCS: 36415; 71046; 80048; 82962; 83735; 83880; 84484; 85025; 86328; 93005; 93306; 96372; 96374; 99284; G0378

== ENCOUNTER → 2020-06-21 09:28 | Outpatient (CLI) | payer OTHER, MEDICARE, SELFPAY ==
[2020-06-21 10:03] LABS: Chloride 101 mmol/L (98-107); Sodium 140 mmol/L (136-145)
[2020-06-21 10:04] LABS: Potassium 3.7 mmoL/L (3.5-5.1)
[2020-06-21 10:07] LABS: Anion Gap 12.7 mEq/L (5-15); Blood Urea Nitrogen 23 mg/dl (9-20); Calcium 9.4 mg/dl (8.4-10.2); Carbon Dioxide 30 mmol/L (22.0-30.0); Estimated Glomerular Filt Rate 47 ml/min (>60); GFR (African American) 57 ML/MIN (>60); Glucose 204 mg/dl (74-100)
== END ==
PROVIDERS: Visit Provider Nurse Practitioner Family
DX: R06.02 Shortness of breath (principal); R00.0 Tachycardia, unspecified; I42.9 Cardiomyopathy, unspecified; I50.20 Unspecified systolic (congestive) heart failure; I50.23 Acute on chronic systolic (congestive) heart failure; I11.0 Hypertensive heart disease with heart failure; I50.9 Heart failure, unspecified; I77.9 Disorder of arteries and arterioles, unspecified; E11.9 Type 2 diabetes mellitus without complications; Z79.4 Long term (current) use of insulin
CPT/HCPCS: 36415; 80048

== ENCOUNTER → 2020-12-13 14:44 | Outpatient (CLI) | payer OTHER, MEDICARE, SELFPAY ==
[2020-12-16 12:48] LABS: Prostate Specific Ag 2.8 ng/mL (0.0-4.0)
== END ==
PROVIDERS: Visit Provider Urology
DX: N40.1 Benign prostatic hyperplasia with lower urinary tract symptoms (principal)
CPT/HCPCS: 36415; 84153; 84154

== ENCOUNTER 2021-10-21 19:45 | Inpatient (IN) | payer MEDICARE, SELFPAY ==
[2021-10-21 19:52] VITALS: BMI 28.9
--- NOTE | 2021-10-21 19:52 | PC.NURSE ---
PT ARRIVED TO FLOOR @ 1950
[2021-10-21 20:00] VITALS: BP 89/44; PULSE 96; RESP 22; TEMP 36.4; O2SAT 100; O2SAT 95; BMI 28.8
--- NOTE | 2021-10-21 20:00 | PC.NURSE ---
pt admitted to [facility] from [facility]
[2021-10-21 20:39] VITALS: PULSE 97
[2021-10-21 20:47] LABS: POC Glucose,Bedside 229 (70-110)
[2021-10-22] VITALS (26 sets, daily range): BP systolic 69–139; BP diastolic 33–99; PULSE 90–120; RESP 20–26; TEMP 35.7–36.4; O2SAT 88–100; BMI 28.5
[2021-10-22 00:14] LABS: Coronavirus 19, PCR Not Detected (NotDetected); Influenza A, PCR Not Detected (NotDetected); Influenza B, PCR Not Detected (NotDetected)
--- NOTE | 2021-10-22 06:14 | PC.NURSE ---
due to technical issues on night watch end order for levo never placed per night watch, but pt is on levophed drip (currently at 16mcg/min) per order from MD Jackson upon admission
[2021-10-22 06:20] LABS: POC Glucose,Bedside 203 (70-110)
[2021-10-22 06:37] LABS: Basophils # 0.1 K/mm3 (0-0.2); Basophils % 0.4 % (0.1-2.0); Eosinophils % 0.2 % (0.1-12.0); Hematocrit 45.9 % (42.0-52.0); Hemoglobin 14.2 g/dL (14.1-18.0); Lymphocytes # 1.4 K/mm3 (0.7-4.5); Lymphocytes % 7.1 % (10-50); Mean Corpuscular HGB Conc 30.9 g/dL (31.8-35.4); Mean Corpuscular Hemoglobin 28.8 pg (27.0-31.2); Mean Corpuscular Volume 93.1 fl (80-94); Mean Platelet Volume 8.8 fl (7.4-10.4); Monocytes # 1.2 K/mm3 (0.1-1.0); Neutrophils # 17.3 K/mm3 (1.8-7.8); Neutrophils % 86.3 % (37.0-80.0); Platelet Count 429 K/mm3 (142-424); Red Blood Count 4.92 M/mm3 (4.60-6.20); Red Cell Distribution Width 16.8 % (11.5-17.5)
[2021-10-22 06:39] LABS: MANUAL DIFFERENTIAL MANUAL DIFFERENTIAL (MANUAL DIFF)
[2021-10-22 06:47] LABS: Blood Urea Nitrogen 38 mg/dl (9-20); Calcium 8.4 mg/dl (8.4-10.2); Carbon Dioxide 22 mmol/L (22.0-30.0); Chloride 105 mmol/L (98-107); Creatinine Clearance Estimated 45 mL/min (50-200); Estimated Glomerular Filt Rate 32 ml/min (>60); GFR (African American) 39 ML/MIN (>60); Glucose 200 mg/dl (74-100); Sodium 136 mmol/L (136-145)
[2021-10-22 06:51] LABS: Hypochromasia 2+; Lymphocytes % 10 % (10-50); Monocytes % 1 % (2-9); Neutrophils % 84 % (42-76); Platelet Estimate Normal; Total Cells Counted 100
--- NOTE | 2021-10-22 10:40 | PC.NURSE ---
Levo at 14 MCG/MIN at this time.
--- NOTE | 2021-10-22 11:07 | PC.NURSE ---
Addendum entered by Adam Mitchell RN 10/23/21 15:39: CORRECTION LEVO Original Note: Chucho gtt currently at12 mcg/min.
--- NOTE | 2021-10-22 11:14 | PC.NURSE ---
Levo Gtt at 10 mcg/min. BP 121/88.
[2021-10-22 11:54] LABS: POC Glucose,Bedside 250 (70-110)
--- NOTE | 2021-10-22 13:12 | HMH.HP ---
*Admission Date: 10/21/21 *Chief complaint: chest pain, chf *History of present illness: Patient is a 66-year-old white male, admitted to our service with Dr. Jackson. Patient is a longstanding patient of Dr. Jackson, has history of coronary artery disease that is post stent deployment x5. Is a history of congestive heart failure, and is post AICD. Longstanding history of tobacco abuse, 1 pack/day since age 16. Comorbid diabetes, marginal control. Status post partial amputation right foot. Primary physician is Dr. Omar Munoz in [place]. Patient began to have chest pressure and heaviness on . He presented to [facility] for further evaluation. Details there are unavailable at time of dictation. He was subsequently excepted in transfer to [facility] And is currently on a Levophed drip. He is having some nausea no active chest pain, no shortness of breath. Pt is clear, lucid, neurologically intact [facility] History Medical History: Reports:: Cardiomyopathy, Carotid Stenosis, Congestive Heart Failure, Coronary Artery Disease, Diabetes Mellitus Type 2, Hyperlipidemia, Hypertension, Internal Pacemaker, Myocardial Infarction, Peripheral Artery Disease Denies:: Cancer, Diabetes Mellitus Type 1, MRSA, Seizures *Have you ever received a pneumonia vaccine?: No *Have you received a flu vaccine this season?: No (allergic) Other Medical History: Reports: Cataracts Other Surgeries: Yes: No Previous Surgery, Angioplasty, Cardiac Catheterization, Cholecystectomy, Colonoscopy, Coronary Stent, Pacemaker Amputation: No Fractures: No - *Social History Smoking Status: Current every day smoker Tobacco Type: cigarettes # Packs/Day (cigarettes): 10 Alcohol Intake: never Substance Use Type: denies use *Occupational Status:: disabled Housing: other Household Members: spouse *Travel in the last 8 weeks: None Family Hx:: Cancer, Diabetes, Heart Attack, Hyperlipidemia, Hypertension, Stroke Review of Systems - Constitutional Reports lack of energy - Eyes Denies change in vision - ENT Denies abnormal hearing - *Cardiovascular Reports chest pain at rest, Reports chest pain with activity, Reports shortness of breath with activity - *Respiratory Reports shortness of breath, Reports shortness of breath with activity, Denies coughing up blood - *Gastrointestinal Reports abdominal pain, Reports heartburn, Reports nausea - *Genitourinary Reports difficulty urinating - *Musculoskeletal Reports deformity, Reports muscle weakness - Integumentary/Breasts Denies yellowing of the skin - *Neurologic Reports abnormal walking, Reports weakness, Denies confusion - Psychiatric Denies behavioral changes - Endocrine Denies cold intolerance - Hematologic/Lymphatic Reports easy bruising, Denies easy bleeding - Allergic/Immunologic Denies hives Meds Home Medications Medication Instructions Recorded Confirmed Type aspirin 81 mg tablet,delayed 81 mg PO DAILY tab 12/26/17 06/20/21 History release duloxetine 60 mg capsule,delayed 60 mg PO DAILY cap 12/26/17 06/20/21 History release magnesium oxide 400 mg (241.3 mg 400 mg PO DAILY tab 12/26/17 06/20/21 History magnesium) tablet insulin glargine 100 unit/mL 60 unit SQ BID ml 12/27/17 06/20/21 History subcutaneous solution Nicotine [Nicoderm 21mg/24hr 21 mg TD DAILYP PRN #30 patch.td24 05/19/20 06/20/21 Rx patch] empagliflozin 25 mg tablet 25 mg PO DAILY 10/25/20 06/20/21 History sacubitril 24 mg-valsartan 26 mg 1 tab PO BID #60 tab 05/18/21 06/20/21 Rx tablet tamsulosin 0.4 mg capsule 0.4 mg PO HS #90 cap 06/16/21 06/20/21 Rx bisoprolol fumarate 5 mg tablet 2.5 mg PO QHS #30 tab 06/20/21 06/20/21 Rx atorvastatin 10 mg tablet 5 mg PO DAILY 90 Days #45 tab 07/29/21 Rx prasugrel 10 mg tablet 10 mg PO DAILY #30 tab 07/29/21 Rx furosemide 80 mg tablet 80 mg PO DAILY #30 tab 09/01/21 Rx Allergies Allergy/AdvReac Type Severity Reaction St
--- NOTE | 2021-10-22 13:19 | HMH.PHAVTE ---
[facility] Pharmacy VTE Monitoring - Patient Demographics Admission date: 10/21/21 Report Date: 10/22/21 Allergies/Adverse Reactions: Patient Allergies influenza A (H5N1) virus vaccine mo Allergy (Mild, Verified 06/20/21 14:16) Height: 1.78 m Weight: 90.446 kg - VTE Risk Labs: VTE Related Lab Results Hgb 14.2 g/dL (14.1-18.0) 10/22/21 06:12 Hct 45.9 % (42.0-52.0) 10/22/21 06:12 Plt Count 429 K/mm3 (142-424) H 10/22/21 06:12 BUN 38 mg/dl (9-20) H 10/22/21 06:12 Creatinine 2.10 mg/dl (0.66-1.25) H 10/22/21 06:12 Estimated Creat Clear 45 mL/min (50-200) 10/22/21 06:12 Was VTE Risk Assessment Performed: No Clinical Trial Participant: No - Prophylaxis VTE Prophylaxis Ordered?: Yes Types of VTE Prophylaxis: TEDS Knee High Location of Applied Device: Bilateral Lower Extremeties
[2021-10-22 13:26] LABS: MANUAL DIFFERENTIAL MANUAL DIFFERENTIAL (MANUAL DIFF)
[2021-10-22 13:29] LABS: Basophils # 0.1 K/mm3 (0-0.2); Basophils % 0.6 % (0.1-2.0); Eosinophils % 0.2 % (0.1-12.0); Hematocrit 49.1 % (42.0-52.0); Hemoglobin 15.1 g/dL (14.1-18.0); Lymphocytes # 2.1 K/mm3 (0.7-4.5); Lymphocytes % 9.6 % (10-50); Mean Corpuscular HGB Conc 30.7 g/dL (31.8-35.4); Mean Corpuscular Volume 94.2 fl (80-94); Mean Platelet Volume 8.8 fl (7.4-10.4); Monocytes # 1.1 K/mm3 (0.1-1.0); Neutrophils # 18.8 K/mm3 (1.8-7.8); Neutrophils % 84.6 % (37.0-80.0); Platelet Count 423 K/mm3 (142-424); Red Blood Count 5.21 M/mm3 (4.60-6.20); Red Cell Distribution Width 16.6 % (11.5-17.5); White Blood Count 22.2 K/mm3 (4.8-10.8)
--- NOTE | 2021-10-22 13:36 | XR_ITS ---
PROCEDURE INFORMATION: Exam: XR Chest Exam date and time: 10/22/2021 1:36 PM Age: 66 years old Clinical indication: Other: Congested heart faliure; Additional info: Chf, leukocytosis TECHNIQUE: Imaging protocol: XR of the chest. Views: 1 view. Portable AP exam 2:25 p.m. COMPARISON: CR XR CHEST 2V 05/18/2020 8:05 PM FINDINGS: Tubes, catheters and devices: Cardiac pacer/ICD unchanged in appearance compared with the prior exam. Lungs: Hypoventilation/low lung volumes compared with the prior study. Patchy atelectasis in the mid and lower lungs. Slight hazy airspace opacity in the lower lungs. No focal consolidation. Pleural spaces: Small right pleural effusion, some fluid tracking along the minor fissure on the right. No pneumothorax. Heart/Mediastinum: Borderline cardiomegaly, accentuated by portable AP technique and shallow inspiration. Overlying ekg monitor tech electrodes. Vasculature: Mild calcified plaque in the aortic arch. Bones/joints: There are spinal degenerative changes, with multilevel disc narrrowing and spondylosis. IMPRESSION: 1. Hypoventilation/low lung volumes compared with the prior exam, with patchy atelectasis in the mid and lower lungs, and slight hazy air space opacity which could be pneumonia or edema. 2. Trace right pleural effusion. 3. Cardiomegaly, cardiac pacer/ICD unchanged in appearance compared with the prior exam. 4. Additional nonemergency and chronic findings as above.
[2021-10-22 13:39] LABS: Albumin/Globulin Ratio 1.3 (1.1-1.8); Alkaline Phosphatase 205 U/L (38-126); Anion Gap 16.3 mEq/L (5-15); Bilirubin,Total 1.3 mg/dl (0.2-1.3); Blood Urea Nitrogen 41 mg/dl (9-20); Calcium 8.4 mg/dl (8.4-10.2); Carbon Dioxide 20 mmol/L (22.0-30.0); Chloride 105 mmol/L (98-107); Creatinine Clearance Estimated 47 mL/min (50-200); Estimated Glomerular Filt Rate 34 ml/min (>60); GFR (African American) 41 ML/MIN (>60); Globulin 3.1 g/dL (1.3-3.2); Glucose 201 mg/dl (74-100); Potassium 5.3 mmoL/L (3.5-5.1); Sodium 136 mmol/L (136-145); Total Protein,Serum 7.1 g/dl (6.3-8.2)
[2021-10-22 13:50] LABS: Alanine Aminotransferase 1311 U/L (12-78)
[2021-10-22 13:58] LABS: Lymphocytes % 14 % (10-50); Monocytes % 4 % (2-9); Neutrophils % 82 % (42-76); Total Cells Counted 100
[2021-10-22 14:01] LABS: Aspartate Amino Transferase 2316 U/L (17-59)
[2021-10-22 14:02] LABS: Platelet Estimate Normal
--- NOTE | 2021-10-22 14:16 | ECG_ITS ---
APPROVED REPORT Exam: Resting ECG HR:97 bpm ECG Measurements Heart Rate 97 AXES PA 163 P 60 QRSd 113 QRS 25 QT 368 T 121 QTc 422 Conclusion SINUS RHYTHM POSSIBLE ANTERIOR MYOCARDIAL INFARCTION , OF INDETERMINATE AGE [30 ms Q WAVE IN V3/V4, OR R < 0.2 mV IN V4] MODERATE T-WAVE ABNORMALITY, CONSIDER LATERAL ISCHEMIA [-0.1+ mV T-WAVE IN I/aVL/V5/V6] ABNORMAL ECG UNCONFIRMED REPORT Electronically signed by : Patrick Garcia MD 10/23/2021 13:53:59
[2021-10-22 14:23] LABS: Troponin I < 0.01 ng/ml (0.00-0.034)
[2021-10-22 14:39] LABS: Lipase 395 U/L (23-300)
[2021-10-22 15:05] LABS: NT Pro Brain Natriuretic Pep. 5650 pg/mL (0-125)
--- NOTE | 2021-10-22 20:39 | PC.NURSE ---
At shift change pt walked to bathroom with levo on 4 mcg/min. Pressure dropped, increased levo gtt, applied non rebreather, checked blood sugar and it was 176. Pt currently on 28 mcg/min and bp 103/62. Pt has intermittently c/o of abd pain and nausea. Called supervisor personnel clerks Dr. Arriaga and discussed a ct scan. He stated he would defer to pcp, since pain has improved some at this point. CB in reach at this time. Have also made pt NPO.
[2021-10-22 21:07] LABS: Troponin I < 0.01 ng/ml (0.00-0.034)
[2021-10-23] VITALS (28 sets, daily range): BP systolic 102–148; BP diastolic 47–106; PULSE 86–115; RESP 16–21; TEMP 36.2–36.6; O2SAT 89–100; BMI 28.5; BMI 28.3
--- NOTE | 2021-10-23 06:00 | XR_ITS ---
PROCEDURE INFORMATION: Exam: XR Chest Exam date and time: 10/23/2021 6:00 AM Age: 66 years old Clinical indication: Shortness of breath and other: Chf TECHNIQUE: Imaging protocol: XR of the chest. Views: 1 view. COMPARISON: CR XR CHEST PORTABLE 10/22/2021 2:19 PM FINDINGS: Tubes, catheters and devices: Cardiac rhythm maintenance device is in place. Lungs: Similar patchy bibasilar airspace opacities. Pleural spaces: Small of fluid within the right minor fissure. No substantial pleural effusion. No pneumothorax. Heart/Mediastinum: Unremarkable. No cardiomegaly. Bones/joints: Unremarkable. IMPRESSION: Similar patchy bibasilar airspace opacities, which may reflect atelectasis versus pneumonia.
[2021-10-23 06:28] LABS: POC Glucose,Bedside 176 (70-110)
[2021-10-23 06:28] LABS: POC Glucose,Bedside 257 (70-110)
[2021-10-23 08:04] LABS: Lipase 345 U/L (23-300)
--- NOTE | 2021-10-23 08:52 | HMH.PHAINT ---
MEDICATION RECONCILIATION COMPLETE USING LIST FROM MD OFFICE, EXTERNAL PHARMACY FILL HISTORY, AND PATIENT INTERVIEW (VIA NURSE TO VERIFY INSULIN DOSE).
--- NOTE | 2021-10-23 10:32 | PC.NURSE ---
Addendum entered by Adam Mitchell RN 10/23/21 15:40: CORRECTION LEVO Original Note: Chucho @ 4 MCG/MIN.
--- NOTE | 2021-10-23 12:08 | CT_ITS ---
PROCEDURE INFORMATION: Exam: CT Abdomen And Pelvis Without Contrast Exam date and time: 10/23/2021 12:08 PM Age: 66 years old Clinical indication: Bloating and constipation; Additional info: Distention, hypoactive bs TECHNIQUE: Imaging protocol: Computed tomography of the abdomen and pelvis without contrast. Radiation optimization: All CT scans at this facility use at least one of these dose optimization techniques: automated exposure control; mA and/or kV adjustment per patient size (includes targeted exams where dose is matched to clinical indication); or iterative reconstruction. COMPARISON: CR XR CHEST PORTABLE 10/23/2021 5:35 AM FINDINGS: Pleural spaces: Small bilateral pleural effusions . Regions of subsegmental atelectasis also identified at the lung bases. Liver: Normal. No mass. Gallbladder and bile ducts: Status post cholecystectomy. Pancreas: Normal. No ductal dilation. Spleen: Normal. No splenomegaly. Adrenal glands: Normal. No mass. Kidneys and ureters: The punctate non-obstructing calculus lower pole left kidney. Minimal bilateral perinephric stranding most consistent with chronic postinflammatory change. Stomach and bowel: Scattered colonic diverticula. No evidence of diverticulitis. Contrast mixed with school stool is identified within the colon most pronounced in the region the rectosigmoid colon. Appendix: No evidence of appendicitis. Intraperitoneal space: Unremarkable. No free air. No significant fluid collection. Vasculature: Atherosclerotic vascular calcification. Lymph nodes: Unremarkable. No enlarged lymph nodes. Urinary bladder: Unremarkable as visualized. Reproductive: Unremarkable as visualized. Bones/joints: Moderate to severe bilateral degenerative changes involving both hip joints greatest on the right. Lumbar spondylosis. Soft tissues: Small bilateral fat filled inguinal hernias. IMPRESSION: 1. Diverticulosis. No evidence of diverticulitis. 2. Demonstration of retained stool in the region of the rectosigmoid colon with mild distention. Clinically correlate regarding mild impaction. 3. Status post cholecystectomy. 4. Bilateral pleural effusions with bibasilar regions of subsegmental atelectasis.
--- NOTE | 2021-10-23 12:17 | XR_ITS ---
PROCEDURE INFORMATION: Exam: XR Right Foot Exam date and time: 10/23/2021 12:17 PM Age: 66 years old Clinical indication: Condition or disease; Other: Evaluate for osteomylitis. ; Prior surgery; Surgery date: 6+ months; Surgery type: Partial foot amputation; Additional info: Eval for osteo TECHNIQUE: Imaging protocol: XR Right foot. Views: 3 or more views. COMPARISON: No relevant prior studies available. FINDINGS: Bones/joints: Postoperative changes consistent with history of partial amputation of the forefoot at the level of the mid shaft of the metatarsals. Well-defined periosteal reaction is demonstrated in association with the 1st metatarsal remnant at and just proximal to the site of amputation. There is no evidence of cortical destruction. No lytic abnormalities are demonstrated. Soft tissues: Normal. Other findings: No previous examinations. Recommendations: If no previous examinations are available for comparative purposes, follow-up with magnetic resonance imaging with contrast is recommended. IMPRESSION: Well-defined periosteal reaction in association with the 1st metatarsal remnant at and just proximal to the site of amputation. No evidence of cortical destruction or lysis. Findings equivocal for recurrent osteomyelitis.
--- NOTE | 2021-10-23 12:18 | PC.NURSE ---
Addendum entered by Adam Mitchell RN 10/23/21 15:39: CORRECTION LEVO Original Note: Chucho titrated to 3 MCG/MIN. Dr. You also stated pt could have oral contrast, instead of IV contrast.
--- NOTE | 2021-10-23 12:21 | HMH.ACPN2 ---
Internal Medicine - PN: Subj *Date: 10/23/21 *Time: 12:38 Interval history: 02 per nc florencio at 4 labs=elev wbc elev lft trop neg creat=2.0 lipase 345 had c/o nausea and poor appetite last bm yd morning diminished bowel sounds cxr atel vs pneum on azith/roceph right foot longstanding wound not malodorous Exam Vital signs and Labs for Last 24 Hours: Temp Pulse Resp BP Pulse Ox 97.6 F 97 H 20 121/78 100 10/23/21 12:02 10/23/21 11:48 10/23/21 11:48 10/23/21 11:48 10/23/21 11:48 Laboratory Results - last 24 hr 10/22/21 11:13: POC Glucose 250 H 10/22/21 12:58: Troponin I < 0.01 10/22/21 12:58: Lipase 395 H 10/22/21 13:05: NT-Pro-B Natriuret Pep 5650 H 10/22/21 13:20: WBC 22.2 H*, RBC 5.21, Hgb 15.1, Hct 49.1, MCV 94.2 H, MCH 29.0, MCHC 30.7 L, RDW 16.6, Plt Count 423, MPV 8.8, Neut % (Auto) 84.6 H, Lymph % (Auto) 9.6 L, [place] % (Auto) 5.0, Eos % (Auto) 0.2, Baso % (Auto) 0.6, Neut # (Auto) 18.8 H, Lymph # (Auto) 2.1, [place] # (Auto) 1.1 H, Eos # (Auto) 0.0, Baso # (Auto) 0.1, Total Counted 100, Neutrophils % (Manual) 82 H, Lymphocytes % (Manual) 14, Monocytes % (Manual) 4, Platelet Estimate Normal 10/22/21 13:20: Sodium 136, Potassium 5.3 H, Chloride 105, Carbon Dioxide 20 L, Anion Gap 16.3 H, BUN 41 H, Creatinine 2.00 H, Estimated Creat Clear 47, Estimated GFR 34 L, Est GFR ( Amer) 41 L, Glucose 201 H, Calcium 8.4, Total Bilirubin 1.3, AST 2316 H*, ALT 1311 H*, Alkaline Phosphatase 205 H, Total Protein 7.1, Albumin 4.0, Globulin 3.1, Albumin/Globulin Ratio 1.3 10/22/21 17:31: POC Glucose 257 H 10/22/21 20:05: POC Glucose 176 H 10/22/21 20:15: Troponin I < 0.01 10/23/21 06:52: Lipase 345 H I & O for Last 24 hours: Intake & Output 10/20/21 10/21/21 10/22/21 10/24/21 23:59 23:59 23:59 00:59 Intake Total 480 / 480 Output Total 175 / 525 1600 / 1600 555 / 555 Balance -175 / -405 -1120 / -1120 -555 / -555 Weight 201 lb 4.513 oz 199 lb 6.4 oz 198 lb 6.4 oz - Constitutional no acute distress, cooperative - *Routine HEENT Exam Head: Present: normocephalic Eye: Present: EOMI, PERRL ENT: Present: mucous membranes moist - *Routine Neck Exam Present: supple. Absent: lymphadenopathy - *Routine Respiratory Exam Absent: accessory muscle use, respiratory distress, wheezes - *Routine Cardiovascular Exam Present: RRR - *Routine Abdominal Exam Present: soft. Absent: normoactive bowel sounds, tenderness, rebound - *Routine Extremities Exam Present: amputation - *Routine Skin Exam Absent: jaundice - *Routine Neurological Exam Present: alert, oriented X3, vision grossly intact, hearing grossly intact Assessment and Plan (1) Acute on chronic systolic (congestive) heart failure Status: Acute Category: Medical Code(s): I50.23 - Acute on chronic systolic (congestive) heart failure (2) Carotid bruit Status: Acute Qualifiers: Laterality: bilateral Qualified Code(s): R09.89 - Other specified symptoms and signs involving the circulatory and respiratory systems Category: Medical Code(s): R09.89 - Other specified symptoms and signs involving the circulatory and respiratory systems (3) Congestive heart failure Status: Acute Qualifiers: Heart failure type: unspecified Heart failure chronicity: unspecified Qualified Code(s): I50.9 - Heart failure, unspecified Category: Medical Code(s): I50.9 - Heart failure, unspecified (4) Hypotension Status: Acute Qualifiers: Hypotension type: unspecified hypotension type Qualified Code(s): I95.9 - Hypotension, unspecified Category: Medical Code(s): I95.9 - Hypotension, unspecified (5) Near syncope Status: Acute Category: Medical Code(s): R55 - Syncope and collapse (6) SOB (shortness of breath) Status: Acute Category: Medical Code(s): R06.02 - Shortness of breath (7) CAD (coronary artery disease) Status: Chronic Qualifiers: Coronary Disease-Associated Artery/Lesion
--- NOTE | 2021-10-23 12:47 | PC.NURSE ---
Spoke with Ehsan from RAD he will be up at 1435 to take down for CT.
--- NOTE | 2021-10-23 13:32 | PC.NURSE ---
Addendum entered by Adam Mitchell RN 10/23/21 15:38: CORRECTION LEVO Original Note: Chucho gtt at 2 MCG/MIN
[2021-10-23 16:06] LABS: POC Glucose,Bedside 191 (70-110)
--- NOTE | 2021-10-23 16:26 | PC.NURSE ---
Attempting to wean pt off LEVO drip, and was unable to tolerate pressure was 84/52. We turned LEVO up from 2mcg/min to 4mcg/min. Then pt's BP now is 86/57. Will continue to monitor.
[2021-10-23 17:38] LABS: MANUAL DIFFERENTIAL MANUAL DIFFERENTIAL (MANUAL DIFF)
[2021-10-23 17:43] LABS: Basophils # 0.1 K/mm3 (0-0.2); Basophils % 0.8 % (0.1-2.0); Eosinophils # 0.2 K/mm3 (0.0-0.4); Eosinophils % 1.2 % (0.1-12.0); Hematocrit 50.9 % (42.0-52.0); Hemoglobin 15.8 g/dL (14.1-18.0); Lymphocytes # 1.7 K/mm3 (0.7-4.5); Lymphocytes % 11.5 % (10-50); Mean Corpuscular HGB Conc 30.9 g/dL (31.8-35.4); Mean Corpuscular Hemoglobin 28.7 pg (27.0-31.2); Mean Corpuscular Volume 92.8 fl (80-94); Mean Platelet Volume 9.4 fl (7.4-10.4); Monocytes # 0.9 K/mm3 (0.1-1.0); Monocytes % 5.7 % (1.7-9.3); Neutrophils % 80.8 % (37.0-80.0); Platelet Count 330 K/mm3 (142-424); Red Blood Count 5.48 M/mm3 (4.60-6.20); Red Cell Distribution Width 16.6 % (11.5-17.5); White Blood Count 14.9 K/mm3 (4.8-10.8)
[2021-10-23 17:48] LABS: Chloride 104 mmol/L (98-107); Sodium 136 mmol/L (136-145)
[2021-10-23 17:49] LABS: Potassium 5.1 mmoL/L (3.5-5.1)
[2021-10-23 17:51] LABS: Alkaline Phosphatase 414 U/L (38-126); Anion Gap 17.1 mEq/L (5-15); Aspartate Amino Transferase 634 U/L (17-59); Bilirubin,Total 1.3 mg/dl (0.2-1.3); Blood Urea Nitrogen 51 mg/dl (9-20); Carbon Dioxide 20 mmol/L (22.0-30.0); Creatinine Clearance Estimated 59 mL/min (50-200); Estimated Glomerular Filt Rate 44 ml/min (>60); GFR (African American) 53 ML/MIN (>60)
[2021-10-23 17:52] LABS: Albumin/Globulin Ratio 1.2 (1.1-1.8); Globulin 3.4 g/dL (1.3-3.2); Glucose 188 mg/dl (74-100); Total Protein,Serum 7.4 g/dl (6.3-8.2)
[2021-10-23 17:58] LABS: Alanine Aminotransferase 1240 U/L (12-78)
[2021-10-23 18:05] LABS: Hypochromasia 1+; Lymphocytes % 7 % (10-50); Neutrophils % 87 % (42-76); Platelet Estimate Normal; Rouleaux 1+; Total Cells Counted 100
--- NOTE | 2021-10-23 18:18 | PC.NURSE ---
Pt's BP currently 103/85. Spoke with Dr. Arriaga and received order for clear liquid diet after ct of abd is back. Also made Dr. eckert aware that ct of abd was back, as well as the x ray of R foot. Mx continues.
--- NOTE | 2021-10-23 18:21 | PC.NURSE ---
Also, since po contast was given, pt has had multiple BM's, brown and loose.
--- NOTE | 2021-10-23 18:39 | PC.NURSE ---
Dr. Arriaga made aware of osteo in report and stated that it could be addressed with pcp in the am. Noted. Pt remains on 4 MCG/MIN of levo.
[2021-10-24] VITALS (30 sets, daily range): BP systolic 85–140; BP diastolic 57–93; PULSE 80–110; RESP 18–22; TEMP 36.3–36.6; O2SAT 89–100; BMI 28.3
--- NOTE | 2021-10-24 | IR_ITS ---
APPROVED REPORT Patient Location: Inpatient PROCEDURES Right heart catheterization Left heart catheterization Left ventriculogram Selective coronary angiogram INDICATION Unstable angina, Decompensated congestive heart failure Informed consent was obtained prior to the procedure. COMPLICATIONS None Estimated Blood Loss: Less than 10 mls TECHNIQUE One percent lidocaine was used to anesthetize the right anterior aspect of the right wrist. The right radial artery was accessed via the Seldinger technique and a 6 [place]uv[place] hydrophilic sheath was placed in the right radial artery. Following this one percent lidocaine was used to anesthetize the right anterior aspect of the right neck. The right internal jugular vein was accessed via the Seldinger technique and a 7 [place]uv[place] sheath was placed in the right internal jugular vein. Following this an arterial cocktail was administered using 5000U heparin, 2.5 mg verapamil, 1mg Lidocaine and 800mcg nitroglycerin into the right radial sheath. A papa catheter was used to perform left heart catheterization left ventriculogram and selective coronary angiography while a [place] catheter was used to perform right heart catheterization. Saturations were obtained in the pulmonary artery and right atrium. At the end of the procedure the arterial sheath was removed good hemostasis was achieved using Traclet band. Patient was transferred to the postop holding area in stable condition for venous sheath removal. ANGIOGRAPHIC RESULTS The left main artery Normal The left anterior descending artery Has a stent in the proximal segment which is widely patent with minimal in-stent restenosis with wide patency and antegrade flow distally The circumflex artery Nondominant and has 50 to 60% stenoses throughout the mid portion along the origins of the small first and second obtuse marginal artery. The stenosis extends into a larger third obtuse marginal artery however there is ALIA-3 flow The right coronary artery Is dominant and has stents in the proximal segment which are widely patent followed by 30% concentric stenosis The [place] ventriculogram reveals Severe left ventricular dilatation ejection fraction 10% The left ventricular end-diastolic pressure Critically elevated at 55 mmHg Right atrial pressure 30 mmHg Pulmonary pressure 70/50 mmHg Pulmonary occlusion pressure 50 mmHg Right atrial saturation 55% Pulmonary saturation 57% IMPRESSION Patent coronary arteries as described above Severely reduced ejection fraction was severely elevated LVEDP all secondary to decompensated heart failure PLAN 1. Milrinone 0.125 will be started 2. Maximize Entresto 3. Avoidance of beta-blockers at this time 4. Gently diurese 5. It may be reasonable to refer patient to [facility] for evaluation of heart transplantation 6. Medical management for coronary artery disease Electronically signed by : Paxton Jackson MD 10/24/2021 15:22:14
--- NOTE | 2021-10-24 04:00 | PC.NURSE ---
Levophed titrated down to 2mcg/min
--- NOTE | 2021-10-24 04:34 | PC.NURSE ---
Pt is A&Ox4 and has ambulated to BS 3x this shift and tolerated well. He denies any n/v this shift, although he has continued to have diarrhea and 1x episode of bowel incontinence. Linens changed and new chux laid. Dry cough noted. Diminished bases noted on auscultation. Sats 96-100% on 2LPM NC. Levophed continues to infuse, titrated per MAR & currently infusing @ 2mcg/min. Dressing to R foot is CDI, edema noted. Call light with reach.
[2021-10-24 06:05] LABS: POC Glucose,Bedside 130 (70-110)
--- NOTE | 2021-10-24 07:24 | PC.NURSE ---
Report given to Black Ureña RN
--- NOTE | 2021-10-24 08:11 | PC.NURSE ---
decreased levophed gtt down to 1mcg/min and 15 minutes later turned off. bp has been up at about 115 systolic
--- NOTE | 2021-10-24 09:46 | PC.NURSE ---
per md if patient tolerates being off of levophed drip may take out of stepdown
--- NOTE | 2021-10-24 09:49 | HMH.CNCARD ---
History of Present Illness Consult date: 10/24/21 Requesting physician: Leno You Chief complaint: chest pain History of present illness: This is a 66-year-old white gentleman who was admitted to the hospital from [facility] for chest pain. The patient states that he had sudden onset of substernal chest tightness. He states that this did not radiate and stayed just in his chest. It was associated with shortness of breath and nausea. He denies any diaphoresis. The patient states that his symptoms started on and he felt as if he were having a heart attack. He went to the emergency department at [facility] and then was transferred here to [facility] since this is where Dr. Jackson is. He still complains of having the chest pain intermittently and still feeling short of breath but denies any active chest pain while I am in the room with him. He has been on a Chucho-Synephrine drip for blood pressure support. That was stopped around 8 AM this morning and his blood pressure is currently stable. The patient does have a history of systolic congestive heart failure and is status post AICD placement. He is also status post partial amputation of the right foot. He is currently seeing a merchandising professor for wounds to his right foot and told me this morning that he does not want a new merchandising professor. The patient is short of breath with exertion. He does have associated orthopnea. He denies any lower extremity edema. He denies any fever, chills, vomiting or diarrhea. [facility] History I have reviewed the patient's past medical history: Yes Medical History: Reports:: Atherosclerotic Heart Disease, Cardiomyopathy, Carotid Stenosis, Congestive Heart Failure, Coronary Artery Disease, Diabetes Mellitus Type 2, Hyperlipidemia, Hypertension, Internal Pacemaker, Myocardial Infarction, Peripheral Artery Disease Denies:: Cancer, Diabetes Mellitus Type 1, MRSA, Seizures *Have you ever received a pneumonia vaccine?: No *Have you received a flu vaccine this season?: No (allergic) Other Medical History: Reports: Cataracts Other Surgeries: Yes: No Previous Surgery, Angioplasty, Cardiac Catheterization, Cholecystectomy, Colonoscopy, Coronary Stent, Pacemaker Amputation: No Fractures: No - *Social History Smoking Status: Current every day smoker Tobacco Type: cigarettes # Packs/Day (cigarettes): 10 Alcohol Intake: never Substance Use Type: denies use *Occupational Status:: disabled Housing: other Household Members: spouse *Travel in the last 8 weeks: None Family Hx:: Cancer, Diabetes, Heart Attack, Hyperlipidemia, Hypertension, Stroke Meds Home Medications Medication Instructions Recorded Confirmed Type aspirin 81 mg tablet,delayed 81 mg PO DAILY tab 12/26/17 10/22/21 History release duloxetine 60 mg capsule,delayed 60 mg PO DAILY cap 12/26/17 10/22/21 History release magnesium oxide 400 mg (241.3 mg 400 mg PO DAILY tab 12/26/17 10/22/21 History magnesium) tablet insulin glargine 100 unit/mL 60 unit SQ BID ml 12/27/17 10/23/21 History subcutaneous solution Nicotine [Nicoderm 21mg/24hr 21 mg TD DAILYP PRN #30 patch.td24 05/19/20 10/22/21 Rx patch] empagliflozin 25 mg tablet 25 mg PO DAILYDM 10/25/20 10/22/21 History atorvastatin 10 mg tablet 5 mg PO DAILY 90 Days #45 tab 07/29/21 10/22/21 Rx Finasteride [Proscar 5mg Tablet] 5 mg PO DAILY 10/22/21 10/22/21 History Furosemide [Furosemide 20mg Tab*] 20 mg PO DAILY 10/22/21 10/22/21 History Naproxen [Naproxen 500mg tab] 500 mg PO BIDP PRN 10/22/21 10/22/21 History Prasugrel HCl 10 mg PO DAILY 10/22/21 10/22/21 History Sacubitril/Valsartan [Entresto] 1 tab PO BID 10/22/21 10/22/21 History Tamsulosin HCl 0.4 mg PO HS 10/22/21 10/22/21 History bisoproloL fumarate [Bisoprolol 2.5 mg PO QHS 10/22/21 10/22/21 History Fumarate] ondansetron HCL [Ondansetron 4mg 4 mg PO BIDP PRN 10/22/21 10/22/21 History tab*] Allergies
--- NOTE | 2021-10-24 09:53 | HMH.ACPN2 ---
Internal Medicine - PN: Subj *Date: 10/24/21 *Time: 08:24 Interval history: pt sitting up in bed, states he does not want any podiatry to see his foot and states hes going home today Exam Vital signs and Labs for Last 24 Hours: Temp Pulse Resp BP Pulse Ox 97.6 F 97 H 18 116/74 98 10/24/21 08:00 10/24/21 07:00 10/24/21 07:00 10/24/21 07:00 10/24/21 07:00 Laboratory Results - last 24 hr 10/23/21 15:58: POC Glucose 191 H 10/23/21 17:34: WBC 14.9 H D, RBC 5.48, Hgb 15.8, Hct 50.9, MCV 92.8, MCH 28.7, MCHC 30.9 L, RDW 16.6, Plt Count 330, MPV 9.4, Neut % (Auto) 80.8 H, Lymph % (Auto) 11.5, [place] % (Auto) 5.7, Eos % (Auto) 1.2, Baso % (Auto) 0.8, Neut # (Auto) 12.0 H, Lymph # (Auto) 1.7, [place] # (Auto) 0.9, Eos # (Auto) 0.2, Baso # (Auto) 0.1, Total Counted 100, Neutrophils % (Manual) 87 H, Band Neutrophils % 6.0, Lymphocytes % (Manual) 7 L, Platelet Estimate Normal, Hypochromasia 1+, Rouleaux 1+ 10/23/21 17:34: Sodium 136, Potassium 5.1, Chloride 104, Carbon Dioxide 20 L, Anion Gap 17.1 H, BUN 51 H, Creatinine 1.60 H, Estimated Creat Clear 59, Estimated GFR 44 L, Est GFR ( Amer) 53 L D, Glucose 188 H, Calcium 8.0 L, Total Bilirubin 1.3, AST 634 H* D, ALT 1240 H*, Alkaline Phosphatase 414 H, Total Protein 7.4, Albumin 4.0, Globulin 3.4 H, Albumin/Globulin Ratio 1.2 10/24/21 05:56: POC Glucose 130 H I & O for Last 24 hours: Intake & Output 10/21/21 10/22/21 10/23/21 10/24/21 10:59 10:59 11:59 11:59 Intake Total 2357 / 2357 Output Total 1175 / 1175 Balance 1182 / 1182 Weight - Constitutional no acute distress - *Routine HEENT Exam Head: Present: normocephalic Eye: Present: PERRL ENT: Present: mucous membranes moist - *Routine Neck Exam Present: supple. Absent: lymphadenopathy - *Routine Respiratory Exam Present: CTA bilaterally - *Routine Cardiovascular Exam Present: RRR - *Routine Abdominal Exam Present: soft, normoactive bowel sounds. Absent: tenderness - *Routine Extremities Exam Present: amputation. Absent: cyanosis, clubbing, edema Comments: partial amp rt foot - *Routine Skin Exam Present: warm, wounds. Absent: rash Comments: open area to rt foot. s/p all toes amputated 1 yr ago - *Routine Neurological Exam Present: alert, oriented X3 Assessment and Plan (1) Acute on chronic systolic (congestive) heart failure Status: Acute Category: Medical Code(s): I50.23 - Acute on chronic systolic (congestive) heart failure (2) Carotid bruit Status: Acute Qualifiers: Qualified Code(s): R09.89 - Other specified symptoms and signs involving the circulatory and respiratory systems Category: Medical Code(s): R09.89 - Other specified symptoms and signs involving the circulatory and respiratory systems (3) Congestive heart failure Status: Acute Qualifiers: Qualified Code(s): I50.9 - Heart failure, unspecified Category: Medical Code(s): I50.9 - Heart failure, unspecified (4) Hypotension Status: Acute Qualifiers: Qualified Code(s): I95.9 - Hypotension, unspecified Category: Medical Code(s): I95.9 - Hypotension, unspecified (5) Near syncope Status: Acute Category: Medical Code(s): R55 - Syncope and collapse (6) SOB (shortness of breath) Status: Acute Category: Medical Code(s): R06.02 - Shortness of breath (7) CAD (coronary artery disease) Status: Chronic Qualifiers: Qualified Code(s): I25.10 - Atherosclerotic heart disease of [place] coronary artery without angina pectoris Category: Medical Code(s): I25.10 - Atherosclerotic heart disease of [place] coronary artery without angina pectoris (8) Cardiomyopathy Status: Chronic Qualifiers: Qualified Code(s): I25.5 - Ischemic cardiomyopathy Category: Medical Code(s): I42.9 - Cardiomyopathy, unspecified (9) Diabetes mellitus Status: Chronic Qualifiers: Qualified Code(s): E10.69 - Type 1 diabetes mellitus with ot
--- NOTE | 2021-10-24 09:59 | P.CONS_ITS ---
*Admission Date: 10/21/21 <GavinocarlenefaviolaNadine - 10/24/21 10:03> *History of present illness: Patient is a 66-year-old white male, admitted to our service with Dr. Jackson. Patient is a longstanding patient of Dr. Jackson, has history of coronary artery disease that is post stent deployment x5. Is a history of congestive heart failure, and is post AICD. Longstanding history of tobacco abuse, 1 pack/day since age 16. Comorbid diabetes, marginal control. Status post partial amputation right foot. Primary physician is Dr. Omar Munoz in [place]. Patient began to have chest pressure and heaviness on . He presented to [facility] for further evaluation. Details there are unavailable at time of dictation. He was subsequently excepted in transfer to [facility] And is currently on a Levophed drip. He is having some nausea no active chest pain, no shortness of breath. Pt is clear, lucid, neurologically intact. PODIATRY CONSULT: Patient is a 66 year- old white male admitted on 10/21/21 for chest pressure and heaviness, near syncope, hypotension, acute on chronic systolic heart failure. Patient has history of partial right forefoot amputation. PCP consulted podiatry for advice on management of right foot amputation. Patient currently sitting up in bed. Alert and oriented x 3. No acute distress noted. Primary nurse at bedside. Levophed drip discontinued. BP 125/65. Patient refused to be evaluated and treated by our service. 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 Morataya in [place] ([address] [place] [address]). Patient right foot x-ray reviewed by Dr. Morales and would like to obtain a CT scan of the right foot to further investigate for osteomyelitis. Unfortunately, patient is refusing our service and will follow up with his regular [employer]. <Nadine Duncan - 10/24/21 12:31> [facility] History Medical History: Reports:: Atherosclerotic Heart Disease, Cardiomyopathy, Caroti d Stenosis, Congestive Heart Failure, Coronary Artery Disease, Diabetes Mellitus Type 2, Hyperlipidemia, Hypertension, Internal Pacemaker, Myocardial Infarction, Peripheral Artery Disease Denies:: Cancer, Diabetes Mellitus Type 1, MRSA, Seizures <Nadine Duncan - 10/24/21 10:03> *Have you ever received a pneumonia vaccine?: No <Nadine Duncan 10/24/21 10:03> *Have you received a flu vaccine this season?: No (allergic) <PerlaNadine 10/24/21 10:03> Other Medical History: Reports: Cataracts <GavinocarlenefaviolaNadine 10/24/21 10:03> Other Surgeries: Yes: No Previous Surgery, Angioplasty, Cardiac Catheterization, Cholecystectomy, Colonoscopy, Coronary Stent, Pacemaker <PerlaNadine 10/24/21 10:03> Amputation: No <PerlaNadine 10/24/21 10:03> Fractures: No <PerlaNadine 10/24/21 10:03> - *Social History Smoking Status: Current every day smoker <PerlaNadine 10/24/21 10:03> Tobacco Type: cigarettes <GavinocarlenefaviolaNadine 10/24/21 10:03> # Packs/Day (cigarettes): 10 <PerlaNadine 10/24/21 10:03> Alcohol Intake: never <PerlaNadine 10/24/21 10:03> Substance Use Type: denies use <PerlaNadine 10/24/21 10:03> *Occupational Status:: disabled <PerlaNadine 10/24/21 10:03> Housing: other <PerlaNadine 10/24/21 10:03> Household Members: spouse <GavinocarlenefaviolaJeanNadine 10/24/21 10:03> *Travel in the last 8 weeks: None <PerlaNadine 10/24/21 10:03> Family Hx:: Cancer, Diabetes, Heart Attack, Hyperlipidemia, Hypertension, Stroke <GavinoandraNadine 10/24/21 10:03> Review of Systems - *Neurologic Reports abnormal walking, Reports weakness, Denies abnormal hearing, Denies behavioral changes, Denies confusion <LibanJean daveher 10/24/21 10:03> Meds
--- NOTE | 2021-10-24 09:59 | HMH.ORTHOCON ---
*Admission Date: 10/21/21 <LibanNadine dave - 10/24/21 10:03> *History of present illness: Patient is a 66-year-old white male, admitted to our service with Dr. Jackson. Patient is a longstanding patient of Dr. Jackson, has history of coronary artery disease that is post stent deployment x5. Is a history of congestive heart failure, and is post AICD. Longstanding history of tobacco abuse, 1 pack/day since age 16. Comorbid diabetes, marginal control. Status post partial amputation right foot. Primary physician is Dr. Omar Munoz in [place]. Patient began to have chest pressure and heaviness on . He presented to [facility] for further evaluation. Details there are unavailable at time of dictation. He was subsequently excepted in transfer to [facility] And is currently on a Levophed drip. He is having some nausea no active chest pain, no shortness of breath. Pt is clear, lucid, neurologically intact. PODIATRY CONSULT: Patient is a 66 year- old white male admitted on 10/21/21 for chest pressure and heaviness, near syncope, hypotension, acute on chronic systolic heart failure. Patient has history of partial right forefoot amputation. PCP consulted podiatry for advice on management of right foot amputation. Patient currently sitting up in bed. Alert and oriented x 3. No acute distress noted. Primary nurse at bedside. Levophed drip discontinued. BP 125/65. Patient refused to be evaluated and treated by our service. Stated that he was going home today and will follow up with his zig zag stitcher Dr. Morataya in [place] ([address] [place] [address]). Patient right foot x-ray reviewed by Dr. Morales and would like to obtain a CT scan of the right foot to further investigate for osteomyelitis. Unfortunately, patient is refusing our service and will follow up with his regular Tutoring Assistant. <Nadine Duncan - 10/24/21 12:31> [facility] History Medical History: Reports:: Atherosclerotic Heart Disease, Cardiomyopathy, Carotid Stenosis, Congestive Heart Failure, Coronary Artery Disease, Diabetes Mellitus Type 2, Hyperlipidemia, Hypertension, Internal Pacemaker, Myocardial Infarction, Peripheral Artery Disease Denies:: Cancer, Diabetes Mellitus Type 1, MRSA, Seizures <Nadine Duncan - 10/24/21 10:03> *Have you ever received a pneumonia vaccine?: No <PerlaNadine 10/24/21 10:03> *Have you received a flu vaccine this season?: No (allergic) <PerlaNadine 10/24/21 10:03> Other Medical History: Reports: Cataracts <[facility] 10/24/21 10:03> Other Surgeries: Yes: No Previous Surgery, Angioplasty, Cardiac Catheterization, Cholecystectomy, Colonoscopy, Coronary Stent, Pacemaker <PerlaNadine 10/24/21 10:03> Amputation: No <[facility] 10/24/21 10:03> Fractures: No <[facility] 10/24/21 10:03> - *Social History Smoking Status: Current every day smoker <PerlaNadine 10/24/21 10:03> Tobacco Type: cigarettes <[facility] 10/24/21 10:03> # Packs/Day (cigarettes): 10 <[facility] 10/24/21 10:03> Alcohol Intake: never <[facility] 10/24/21 10:03> Substance Use Type: denies use <[facility] 10/24/21 10:03> *Occupational Status:: disabled <PerlaNadine 10/24/21 10:03> Housing: other <[facility] 10/24/21 10:03> Household Members: spouse <PerlaNadine 10/24/21 10:03> *Travel in the last 8 weeks: None <PerlaNadine 10/24/21 10:03> Family Hx:: Cancer, Diabetes, Heart Attack, Hyperlipidemia, Hypertension, Stroke <[facility] 10/24/21 10:03> Review of Systems - *Neurologic Reports abnormal walking, Reports weakness, Denies abnormal hearing, Denies behavioral changes, Denies confusion <GavinocarlenefaviolaNadine 10/24/21 10:03> Meds Home Medications Medication Instructions Recorded Confirmed Type aspirin 81 mg tablet,delayed 81 mg PO DAILY tab 12/26/17 10/22/21 History release duloxetine 60 mg capsule,delayed 60 mg PO DAILY cap 12/26/17 10/22/21 History release
--- NOTE | 2021-10-24 10:11 | HMH.PTEV ---
Physical Therapy Evaluation Rehab PT IP Evaluation Start: 10/24/21 08:35 Freq: ONCE Status: Active Protocol: Document 10/24/21 10:08 SADAF (Rec: 10/24/21 10:11 SADAF [id number]) Subjective/History History History Patient is a 66-year-old white male, admitted to our service with Dr. Jackson. Patient is a longstanding patient of Dr. Jackson, has history of coronary artery disease that is post stent deployment x5. Is a history of congestive heart failure, and is post AICD. Longstanding history of tobacco abuse, 1 pack/day since age 16. Comorbid diabetes, marginal control. Status post partial amputation right foot. Copied from H&P Subjective Subjective no complaints from pt other than wanting to get OOB Rehab PT IP Eval Objective Appearance Patient Behavior Appropriate,Cooperative Patient Orientation Person,Place,Year,Situation Difficulty following instructions none Speech Pattern Clear,Appropriate Ambulation Patient Able to Ambulate Yes Ambulation Observation IP General Gait Pattern Observation No Deviations/Normal Ambulation Distance (feet) 10 Ambulation Assistive Device None Ambulation Ability Supervision/Stand by,Contact Guard/Hand Hold Balance Ability to Arise Able, uses arms to help Sitting Balance Steady, safe Standing Balance Steady, wide stance Dynamic Sitting Balance Ability Good Dynamic Standing Balance Ability Fair Transfers Bed Transfer Ability Independent Chair Transfer Ability Independent Sit to Stand Bed Transfer Ability Independent,Supervision/Stand by Sit to Stand Chair Transfer Ability Independent,Supervision/Stand by Rehab PT IP prob,goals,plan Problems Date of Evaluation: 10/24/21 Rehab Potential Rehab Potential Innapropriate for Skilled Therapy Discharge Plan PT Discharge Plan Pt safe to return home once medically stable. G -code Required Yes Eval Complexity Eval Charge Codes 84250 - Moderate Complexity G Codes PT Current Status Mobility PT Current Status Modifier CI-At least 1%
[2021-10-24 11:06] LABS: C-Reactive Protein 53.1 mg/L (0-4)
[2021-10-24 11:22] LABS: Erythrocyte Sedimentation Rate 20 mm/hr (0-20)
--- NOTE | 2021-10-24 11:39 | HMH.OTEV ---
OT Inpatient Evaluation Rehab OT IP Evaluation Start: 10/24/21 09:59 Freq: ONCE Status: Complete Protocol: Document 10/24/21 11:34 NASEEM (Rec: 10/24/21 11:39 [facility] [id number]) Rehab OT IP Assessment Subjective History Pt orieneted x 3 on arrival. Pt agreeable to engage in therapy evaluation. Pt reports prior to being in the hosptital he was independently with all ADLs. Pt was admitted on 10/21/21 due to chest pain and CHF. The following information was copied from history and physical report by physician: Patient is a 66-year-old white male, admitted to our service with Dr. Jackson. Patient is a longstanding patient of Dr. Jackson, has history of coronary artery disease that is post stent deployment x5. Is a history of congestive heart failure, and is post AICD. Longstanding history of tobacco abuse, 1 pack/day since age 16. Comorbid diabetes, marginal control. Status post partial amputation right foot. Pt has a past medical history of Cardiomyopathy, Carotid Stenosis, Congestive Heart Failure, Coronary Artery Disease, Diabetes Mellitus Type 2, Hyperlipidemia, Hypertension, Internal Pacemaker, Myocardial Infarction, Peripheral Artery Diseas Subjective I dont need any help. Pt resting in bed on arrival. Pt completed bed mobility and went from supine to sitting at eob with sba. While sitting at eob, pt completed lower body dressing to don his pajama pants with sba. Pt then engaged in functional transfer from bed to chair with sba. Pt was germán
--- NOTE | 2021-10-24 13:35 | CA_ITS ---
APPROVED REPORT EXAM: Comprehensive 2D, Doppler, and color-flow Echocardiogram Student Support Counselor: Cinthya Schroeder, DARCY, RVS Ht: 5 ft 10 in Wt: 126lbs BSA: 1.72 BP: 126/83 mmHg Indications: CAD,CM, AICD,CP, HX-COVID,SMOKER, PAD Echo Enhancing Agent Comments: TECHNICALLY DIFFICULT EXAM WITH POOR ACOUSTICS THROUGHOUT. 2D Dimensions IVSd 0.79 cm LVEF (Visual) 11.70 % PWd 0.92 cm LVDd 6.92 cm LVDs 6.55 cm Aortic Root 2.90 cm Left Atrium 4.12 cm LVOT 2.02 cm (M/F) 1.5-2.5 M-Mode Dimensions RVDd 2.28 cm (0.9-2.6) LA Diam 4.48 cm (1.9-4.0) LVDd 7.19 cm (3.5-5.7) Ao Diam 3.45 cm (2.0-3.7) LVDs 5.98 cm (3.5-5.7) IVSd 0.80 cm (0.6-1.1) PWd 0.76 cm (0.6-1.1) EF (Teich) 34.20% EPSs 3.99 cm FS 16.80% EDV (Teich) 271.30 mL TAPSE 0.98 (<1.7) ESV (Teich) 178.60 mL LV Diastology E Decel Time 107.00 (160-240 msec) E/A Ratio 2.47 MED E' 3.60 (< 7 cm/sec) MED A' 4.20 cm/s E'/MED E' Ratio 27.00 (>14) LAT E' 5.10 (<10 cm/sec) LAT A' 4.00 cm/s E/LAT E' Ratio 19.06 (>14) Aortic Valve LVOT Max 65.00 (70-110 cm/s) LVOT VTI 8.88 cm AoV Peak Bayron. 103.00 (50-130 cm/s) AO Peak GR. 4.20 mmHg AO Mean GR. 2.20 (<5 mmHg) AO VTI 15.43 (18-25 cm) NISREEN (VTI) 1.84 (2.5-4.5 cm2) Mitral Valve MV A Velocity 39.00 (40-130 cm/s) E/A Ratio 2.47 MV Decel. Time 107.00 (160-240 ms) MV Mean Gr. 1.90 (<2mmHg) MV PHT 30.00 ms Pulmonary Valve PV Peak Velocity 67.00 (50-150 cm/s) Tricuspid Valve TR P. Velocity 313.00 cm/s RAP Estimate 10.00 mmHg RVSP 49.10 mmHg Left Ventricle Left atrium is mildly enlarged, left ventricle is mildly dilated, severe left ventricular systolic dysfunction, visually estimated ejection fraction 25% left ventricle is globally hypokinetic, Doppler evidence of raise left ventricular end-diastolic pressure as well as left atrial pressure. Low cardiac output state is also seen. Right Ventricle Right atrium is mildly enlarged, right ventricle is normal size and contractility, there is an AICD lead seen in right ventricle. Aortic Valve Aortic valve is thickened and calcified without Doppler evidence of aortic stenosis or aortic insufficiency. Mitral Valve Mitral valve leaflets are minimally thickened, there is moderate mitral regurgitation. Tricuspid Valve Tricuspid valve is grossly normal, there is mild tricuspid regurgitation, tricuspid regurgitation jet velocity is inadequate for calculation of the right ventricular systolic pressure. Pulmonic Valve Pulmonic valve is poorly visualized. Great Vessels Aortic root is normal size. Inferior vena cava is dilated without significant inspiratory collapse. Pericardium No significant pericardial effusion noted. Conclusion 1. Mildly enlarged left atrium, dilated left ventricle, severe reduced left ventricular systolic function, visually estimated ejection fraction 55%, left ventricle is globally hypokinetic, endocardial surfaces are poorly visualized, Doppler evidence of raise left ventricular end-diastolic pressure, left left atrial pressure, and Doppler evidence of low cardiac output state. 2. Moderate mitral and mild tricuspid regurgitation. 3. No significant pericardial effusion. 4. Inferior vena cava is mildly dilated without significant inspiratory collapse. Electronically signed by : Emmett Dia MD 10/24/2021 20:12:10
[2021-10-24 13:37] LABS: POC Glucose,Bedside 151 (70-110)
--- NOTE | 2021-10-24 13:37 | CA_ITS ---
FINAL REPORT TECHNIQUE: Color Doppler, duplex Doppler and mcdonald scale sonography of the bilateral neck vasculature was performed. Velocities were measured in the carotid arteries. Stenosis evaluation based on velocity criteria. CLINICAL HISTORY: stenosis, Cardiomyopathy EF 20% FINDINGS: The peak systolic velocity of the right common carotid artery is 42 cm/sec and internal carotid artery 62 cm/sec. The diastolic velocity in the internal carotid artery is 26 cm/sec. The ICA/CCA ratio is 1.5 a. Visually, a small amount of plaque is seen. These findings are consistent with less than 50% stenosis. The external carotid artery is patent. The right vertebral artery is patent with antegrade flow. The peak systolic velocity of the left common carotid artery is 71 cm/sec and internal carotid artery 138 cm/sec. The diastolic velocity in the internal carotid artery is 52 cm/sec. The ICA/CCA ratio is 2.66. Visually, a small amount of plaque is seen. These findings are consistent with less than 50% stenosis. The external carotid artery is patent. The left vertebral artery is patent with antegrade flow. IMPRESSION: Less than 50% bilateral carotid stenosis. Bilateral patent vertebral arteries. If indicated, CTA or MRA could further evaluate. Reviewed, Interpreted and Dictated by Jose Wright III, MD Transcribed by Stewart Tiwari Authenticated by Jose Wright III, MD on 10/24/2021 04:40:57 PM [facility]
--- NOTE | 2021-10-24 14:18 | PC.NURSE ---
DOWN IN CATHLAB AT THIS TIME
[2021-10-24 15:32] LABS: CATHL Arterial O2 SAT 57.2 % (90-100); CATHL Venous O2 SAT 55.2 % (75-80)
[2021-10-24 17:14] LABS: POC Glucose,Bedside 152 (70-110)
--- NOTE | 2021-10-24 19:57 | PC.NURSE ---
PATIENT HAS DONE WELL SINCE RETURN TO CATHLAB. PATIENT DID GIVE PERMISSION FOR INFO TO BE GIVEN TO SISTER OVER PHONE. PASSWORD ALSO ESTABLISHED WITH PATIENT. VITALS HAVE BEEN STABLE. TOLERATING MILRINONE. HAS HAD A BM THIS SHIFT, RINGS OUT NEEDED. DID HAVE AN ACCIDENT OF URINE EARLIER IN SHIFT BUT OTHERWISE USES URINAL. APPETITE IS OKAY. FAMILY AT BEDSIDE SLIGHTLY EMOTIONAL AFTER HEART CATH RESULTS. PATIENT DID SIT ON SIDE OF BED FOR MEALS AND UP TO CHAIR. NO COMPLAINTS NOTED. DID REFUSE ALL CARE FROM PODIATRY STANDPOINT.
[2021-10-24 20:54] LABS: POC Glucose,Bedside 161 (70-110)
[2021-10-25] VITALS (16 sets, daily range): BP systolic 95–131; BP diastolic 53–88; PULSE 89–103; RESP 15–25; TEMP 36.4–36.8; O2SAT 91–96; BMI 28.6
--- NOTE | 2021-10-25 04:22 | PC.NURSE ---
patient has rested well thus far in shift. Milrinone continues to infuse @ 0.125mcg, and pt has tolerated well. Pt's cath sites right IJ and radial have remained C/D/I. Pt has voiced no c/o of pain this shift. Pt has been using urinal independently with 500ml in output so far this shift.
[2021-10-25 05:39] LABS: Basophils # 0.1 K/mm3 (0-0.2); Basophils % 0.5 % (0.1-2.0); Eosinophils # 0.2 K/mm3 (0.0-0.4); Eosinophils % 1.7 % (0.1-12.0); Hematocrit 39.9 % (42.0-52.0); Hemoglobin 12.2 g/dL (14.1-18.0); Lymphocytes # 1.1 K/mm3 (0.7-4.5); Lymphocytes % 12.4 % (10-50); Mean Corpuscular HGB Conc 30.6 g/dL (31.8-35.4); Mean Corpuscular Hemoglobin 28.2 pg (27.0-31.2); Mean Corpuscular Volume 92.2 fl (80-94); Monocytes # 0.8 K/mm3 (0.1-1.0); Monocytes % 8.8 % (1.7-9.3); Neutrophils # 6.8 K/mm3 (1.8-7.8); Neutrophils % 76.6 % (37.0-80.0); Platelet Count 235 K/mm3 (142-424); Red Blood Count 4.32 M/mm3 (4.60-6.20); Red Cell Distribution Width 16.7 % (11.5-17.5); White Blood Count 8.9 K/mm3 (4.8-10.8)
[2021-10-25 05:45] LABS: Chol/HDL Ratio 9.5 (1-3.5); Cholesterol 199 mg/dl (140-200); HDL Cholesterol 21 mg/dl (40-60); Triglycerides 135 mg/dl (30-150); VLDL Cholesterol 27 mg/dL (0-40)
[2021-10-25 05:46] LABS: Anion Gap 9.9 mEq/L (5-15); Blood Urea Nitrogen 37 mg/dl (9-20); Calcium 7.7 mg/dl (8.4-10.2); Carbon Dioxide 21 mmol/L (22.0-30.0); Chloride 108 mmol/L (98-107); Creatinine Clearance Estimated 79 mL/min (50-200); Estimated Glomerular Filt Rate 61 ml/min (>60); GFR (African American) 74 ML/MIN (>60); Glucose 83 mg/dl (74-100); Potassium 3.9 mmoL/L (3.5-5.1); Sodium 135 mmol/L (136-145)
[2021-10-25 05:56] LABS: Direct LDL Cholesterol 132.27 mg/dL (100-129)
[2021-10-25 06:37] LABS: POC Glucose,Bedside 93 (70-110)
--- NOTE | 2021-10-25 10:17 | HMH.ACPN2 ---
Internal Medicine - PN: Subj *Date: 10/25/21 *Time: 19:09 Interval history: 66-year-old male patient sitting up in bed he denies any respiratory distress or chest pain during the night. Current oxygenation 95% on room air, blood pressure 101/64 heart rate 94. Milrinone infusing per orders and he has started Entresto p.o. He does request to go home, lengthy discussion on medical necessity to stay in hospital on IV medications he verbalizes understanding and states I want to go home as soon as I can. He denies any specific reason on why he wants to leave Exam Vital signs and Labs for Last 24 Hours: Temp Pulse Resp BP Pulse Ox 97.6 F 93 H 15 101/64 L 94 L 10/25/21 08:00 10/25/21 08:00 10/25/21 08:00 10/25/21 08:00 10/25/21 08:00 Laboratory Results - last 24 hr 10/24/21 10:21: ESR 20 10/24/21 10:21: C-Reactive Protein 53.1 H 10/24/21 10:21: Hemoglobin A1c 10.0 H 10/24/21 11:42: POC Glucose 151 H 10/24/21 15:06: ABG O2 Sat (Measured) 57.2 L, POC VBG O2 Sat (Bren) 55.2 L 10/24/21 17:03: POC Glucose 152 H 10/24/21 20:21: POC Glucose 161 H 10/25/21 05:12: WBC 8.9 D, RBC 4.32 L, Hgb 12.2 L, Hct 39.9 L, MCV 92.2, MCH 28.2, MCHC 30.6 L, RDW 16.7, Plt Count 235 D, MPV 9.0, Neut % (Auto) 76.6, Lymph % (Auto) 12.4, Cooper % (Auto) 8.8, Eos % (Auto) 1.7, Baso % (Auto) 0.5, Neut # (Auto) 6.8, Lymph # (Auto) 1.1, Cooper # (Auto) 0.8, Eos # (Auto) 0.2, Baso # (Auto) 0.1 10/25/21 05:12: Sodium 135 L, Potassium 3.9 D, Chloride 108 H, Carbon Dioxide 21 L, Anion Gap 9.9, BUN 37 H D, Creatinine 1.20 D, Estimated Creat Clear 79, Estimated GFR 61, Est GFR ( Amer) 74 D, Glucose 83, Calcium 7.7 L 10/25/21 05:12: Triglycerides 135, Cholesterol 199, LDL Cholesterol Direct 132.27 H, VLDL Cholesterol 27, HDL Cholesterol 21 L, Cholesterol/HDL Ratio 9.5 H 10/25/21 06:11: POC Glucose 93 I & O for Last 24 hours: Intake & Output 10/22/21 10/23/21 10/24/21 10/25/21 22:59 23:59 23:59 23:59 Intake Total 1225 / 1225 240 / 240 Output Total 975 / 1475 680 / 680 Balance 250 / -250 -440 / -440 Weight 198 lb 3.129 oz 200 lb 3.991 oz - Constitutional no acute distress - *Routine HEENT Exam Head: Present: normocephalic Eye: Present: EOMI ENT: Present: mucous membranes moist - *Routine Neck Exam Present: trachea midline. Absent: tracheal deviation - *Routine Respiratory Exam Present: wheezes. Absent: accessory muscle use - *Routine Cardiovascular Exam Present: RRR - *Routine Abdominal Exam Present: soft, normoactive bowel sounds. Absent: tenderness, rigid - *Routine Extremities Exam Present: amputation Comments: Toes on R Foot Amputated Drsg C/D/I - *Routine Skin Exam Present: dry, wounds. Absent: intact Comments: Toes on R Foot Amputated Drsg C/D/I - *Routine Neurological Exam Present: alert, oriented X3. Absent: motor deficit - Routine Psychiatric Exam Present: normal affect. Absent: auditory hallucinations Assessment and Plan (1) Angina pectoris Status: Resolved Category: Medical Code(s): I20.9 - Angina pectoris, unspecified (2) SOB (shortness of breath) Status: Acute Category: Medical Code(s): R06.02 - Shortness of breath (3) Acute on chronic systolic (congestive) heart failure Status: Acute Category: Medical Code(s): I50.23 - Acute on chronic systolic (congestive) heart failure (4) Carotid bruit Status: Acute Qualifiers: Laterality: bilateral Qualified Code(s): R09.89 - Other specified symptoms and signs involving the circulatory and respiratory systems Category: Medical Code(s): R09.89 - Other specified symptoms and signs involving the circulatory and respiratory systems (5) Hypotension Status: Acute Qualifiers: Hypotension type: unspecified hypotension type Qualified Code(s): I95.9 - Hypotension, unspecified Category: Medical Code(s): I95.9 - Hypotension, unspecified (6) CAD (coronary artery disease) Status: Chronic Qual
--- NOTE | 2021-10-25 10:19 | HMH.PNCARD ---
Subjective Date: 10/25/21 Time: 09:30 Principal diagnosis: systolic chf Interval history: This is a 66-year-old neck systolic congestive heart failure. The patient underwent left for Sonny artery disease and severely reduced ejection fraction with severely elevated LVEDP secondary to decompensated systolic congestive heart failure. The patient has been started on a milrinone drip. He has also been started on Entresto. We are currently holding his beta-blockers. This morning he denies any chest pain or pressure. He states that he is still having shortness of breath and fatigue. The patient is adamant that he is ready to go home as soon as possible. He is lying flat when I walk in the room with no symptoms. He denies any fever, chills, nausea, vomiting or diarrhea. Exam Vital signs and Labs for Last 24 Hours: Temp Pulse Resp BP Pulse Ox 97.6 F 93 H 15 101/64 L 94 L 10/25/21 08:00 10/25/21 08:00 10/25/21 08:00 10/25/21 08:00 10/25/21 08:00 Laboratory Results - last 24 hr 10/24/21 10:21: ESR 20 10/24/21 10:21: C-Reactive Protein 53.1 H 10/24/21 10:21: Hemoglobin A1c 10.0 H 10/24/21 11:42: POC Glucose 151 H 10/24/21 15:06: ABG O2 Sat (Measured) 57.2 L, POC VBG O2 Sat (Bren) 55.2 L 10/24/21 17:03: POC Glucose 152 H 10/24/21 20:21: POC Glucose 161 H 10/25/21 05:12: WBC 8.9 D, RBC 4.32 L, Hgb 12.2 L, Hct 39.9 L, MCV 92.2, MCH 28.2, MCHC 30.6 L, RDW 16.7, Plt Count 235 D, MPV 9.0, Neut % (Auto) 76.6, Lymph % (Auto) 12.4, Sawyer % (Auto) 8.8, Eos % (Auto) 1.7, Baso % (Auto) 0.5, Neut # (Auto) 6.8, Lymph # (Auto) 1.1, Sawyer # (Auto) 0.8, Eos # (Auto) 0.2, Baso # (Auto) 0.1 10/25/21 05:12: Sodium 135 L, Potassium 3.9 D, Chloride 108 H, Carbon Dioxide 21 L, Anion Gap 9.9, BUN 37 H D, Creatinine 1.20 D, Estimated Creat Clear 79, Estimated GFR 61, Est GFR ( Amer) 74 D, Glucose 83, Calcium 7.7 L 10/25/21 05:12: Triglycerides 135, Cholesterol 199, LDL Cholesterol Direct 132.27 H, VLDL Cholesterol 27, HDL Cholesterol 21 L, Cholesterol/HDL Ratio 9.5 H 10/25/21 06:11: POC Glucose 93 I & O for Last 24 hours: Intake & Output 10/22/21 10/23/21 10/24/21 10/25/21 22:59 23:59 23:59 23:59 Intake Total 1225 / 1225 240 / 240 Output Total 975 / 1475 680 / 680 Balance 250 / -250 -440 / -440 Weight 198 lb 3.129 oz 200 lb 3.991 oz Narrative: Telemetry strip is sinus rhythm with a rate of 90. - Constitutional no acute distress, obese - *Routine HEENT Exam Head: Present: normocephalic, atraumatic Eye: Present: EOMI, PERRL ENT: Present: mucous membranes moist - *Routine Neck Exam Present: supple, full ROM, normal carotid upstroke. Absent: JVD, carotid bruit, lymphadenopathy - *Routine Respiratory Exam Present: rales, wheezes - *Routine Cardiovascular Exam Present: RRR, Normal S1, Normal S2. Absent: murmur - *Routine Abdominal Exam Present: soft, normoactive bowel sounds. Absent: tenderness, distended - *Routine Extremities Exam Present: full ROM, pulses intact, normal capillary refill. Absent: cyanosis, clubbing, edema - *Routine Skin Exam Present: intact, warm. Absent: erythema, lesions, rash - *Routine Neurological Exam Present: alert, oriented X3, CN II-XII intact. Absent: sensory deficit, motor deficit Progress Note: A&P (1) SOB (shortness of breath) Status: Acute (2) Acute on chronic systolic (congestive) heart failure Status: Acute (3) Hypotension Status: Acute (4) CAD (coronary artery disease) Status: Chronic (5) Cardiomyopathy Status: Chronic (6) Diabetes mellitus Status: Chronic (7) Edema Status: Chronic (8) HLD (hyperlipidemia) Status: Chronic (9) Hypertensive heart disease Status: Chronic (10) Peripheral arterial occlusive disease Status: Chronic (11) Tobacco dependence syndrome Status: Chronic (12) Renal insufficiency Status: Acute (13) Elevated liver enzymes Status: Acute (14) History of partial amputation of
[2021-10-25 12:23] LABS: POC Glucose,Bedside 190 (70-110)
[2021-10-25 16:26] LABS: POC Glucose,Bedside 222 (70-110)
[2021-10-26] VITALS (15 sets, daily range): BP systolic 90–126; BP diastolic 57–71; PULSE 100–112; RESP 12–22; TEMP 36.4–37.1; O2SAT 92–98; BMI 29.4
[2021-10-26 06:10] LABS: POC Glucose,Bedside 161 (70-110)
[2021-10-26 06:42] LABS: Basophils % 0.3 % (0.1-2.0); Eosinophils # 0.4 K/mm3 (0.0-0.4); Eosinophils % 4.3 % (0.1-12.0); Hematocrit 41.4 % (42.0-52.0); Hemoglobin 12.5 g/dL (14.1-18.0); Lymphocytes # 1.3 K/mm3 (0.7-4.5); Lymphocytes % 14.4 % (10-50); Mean Corpuscular HGB Conc 30.2 g/dL (31.8-35.4); Mean Corpuscular Hemoglobin 28.2 pg (27.0-31.2); Mean Corpuscular Volume 93.3 fl (80-94); Mean Platelet Volume 9.1 fl (7.4-10.4); Monocytes # 0.7 K/mm3 (0.1-1.0); Monocytes % 7.7 % (1.7-9.3); Neutrophils # 6.5 K/mm3 (1.8-7.8); Neutrophils % 73.2 % (37.0-80.0); Platelet Count 235 K/mm3 (142-424); Red Blood Count 4.43 M/mm3 (4.60-6.20); Red Cell Distribution Width 16.9 % (11.5-17.5); White Blood Count 8.9 K/mm3 (4.8-10.8)
[2021-10-26 07:00] LABS: Anion Gap 10.4 mEq/L (5-15); Blood Urea Nitrogen 34 mg/dl (9-20); Calcium 7.9 mg/dl (8.4-10.2); Carbon Dioxide 23 mmol/L (22.0-30.0); Chloride 106 mmol/L (98-107); Creatinine Clearance Estimated 88 mL/min (50-200); Estimated Glomerular Filt Rate 67 ml/min (>60); GFR (African American) 81 ML/MIN (>60); Glucose 160 mg/dl (74-100); Potassium 4.4 mmoL/L (3.5-5.1); Sodium 135 mmol/L (136-145)
--- NOTE | 2021-10-26 08:49 | HMH.ACPN ---
Internal Medicine - PN: Subj *Date: 10/26/21 *Time: 08:49 Exam Vital signs and Labs for Last 24 Hours: Temp Pulse Resp BP Pulse Ox 98.0 F 106 H 18 110/71 94 L 10/26/21 08:26 10/26/21 08:00 10/26/21 08:00 10/26/21 08:00 10/26/21 08:00 Laboratory Results - last 24 hr 10/25/21 11:52: POC Glucose 190 H 10/25/21 16:18: POC Glucose 222 H 10/26/21 05:05: POC Glucose 161 H 10/26/21 05:11: WBC 8.9, RBC 4.43 L, Hgb 12.5 L, Hct 41.4 L, MCV 93.3, MCH 28.2, MCHC 30.2 L, RDW 16.9, Plt Count 235, MPV 9.1, Neut % (Auto) 73.2, Lymph % (Auto) 14.4, [place] % (Auto) 7.7, Eos % (Auto) 4.3, Baso % (Auto) 0.3, Neut # (Auto) 6.5, Lymph # (Auto) 1.3, [place] # (Auto) 0.7, Eos # (Auto) 0.4, Baso # (Auto) 0.0 10/26/21 05:11: Sodium 135 L, Potassium 4.4, Chloride 106, Carbon Dioxide 23, Anion Gap 10.4, BUN 34 H, Creatinine 1.10, Estimated Creat Clear 88, Estimated GFR 67, Est GFR ( Amer) 81, Glucose 160 H D, Calcium 7.9 L I & O for Last 24 hours: Intake & Output 10/23/21 10/24/21 10/25/21 10/26/21 23:59 23:59 23:59 23:59 Intake Total 1225 / 1225 785 / 785 240 / 240 Output Total 975 / 1475 2905 / 2905 500 / 500 Balance 250 / -250 -2120 / -2120 -260 / -260 Weight 89.9 kg 90.832 kg 93.128 kg Assessment and Plan (1) Angina pectoris Status: Resolved Category: Medical Code(s): I20.9 - Angina pectoris, unspecified (2) SOB (shortness of breath) Status: Acute Category: Medical Code(s): R06.02 - Shortness of breath (3) Acute on chronic systolic (congestive) heart failure Status: Acute Category: Medical Code(s): I50.23 - Acute on chronic systolic (congestive) heart failure (4) Carotid bruit Status: Acute Qualifiers: Laterality: bilateral Qualified Code(s): R09.89 - Other specified symptoms and signs involving the circulatory and respiratory systems Category: Medical Code(s): R09.89 - Other specified symptoms and signs involving the circulatory and respiratory systems (5) Hypotension Status: Acute Qualifiers: Hypotension type: unspecified hypotension type Qualified Code(s): I95.9 - Hypotension, unspecified Category: Medical Code(s): I95.9 - Hypotension, unspecified (6) CAD (coronary artery disease) Status: Chronic Qualifiers: Coronary Disease-Associated Artery/Lesion type: [place] artery [place] vs. transplanted heart: [place] heart Associated angina: without angina Qualified Code(s): I25.10 - Atherosclerotic heart disease of [place] coronary artery without angina pectoris Category: Medical Code(s): I25.10 - Atherosclerotic heart disease of [place] coronary artery without angina pectoris (7) Cardiomyopathy Status: Chronic Qualifiers: Cardiomyopathy type: ischemic Qualified Code(s): I25.5 - Ischemic cardiomyopathy Category: Medical Code(s): I42.9 - Cardiomyopathy, unspecified (8) Diabetes mellitus Status: Chronic Qualifiers: Diabetes mellitus type: type 1 Diabetes mellitus complication status: with other specified complication Qualified Code(s): E10.69 - Type 1 diabetes mellitus with other specified complication Category: Medical Code(s): E11.9 - Type 2 diabetes mellitus without complications (9) Edema Status: Chronic Qualifiers: Edema type: localized Qualified Code(s): R60.0 - Localized edema Category: Medical Code(s): R60.9 - Edema, unspecified (10) HLD (hyperlipidemia) Status: Chronic Qualifiers: Hyperlipidemia type: mixed hyperlipidemia Qualified Code(s): E78.2 - Mixed hyperlipidemia Category: Medical Code(s): E78.5 - Hyperlipidemia, unspecified (11) Hypertensive heart disease Status: Chronic Qualifiers: Heart failure presence: with heart failure Heart failure type: systolic Heart failure chronicity: acute on chronic Qualified Code(s): I11.0 - Hypertensive heart disease with heart failure; I50.23 - Acute on chronic systolic (congestive) heart failure Category: Med
--- NOTE | 2021-10-26 08:51 | HMH.ACPN2 ---
Internal Medicine - PN: Subj *Date: 10/26/21 *Time: 13:03 Interval history: 66-year-old male patient resting quietly in bed with eyes closed, awakens to verbal stimuli. He reports she is feeling better, requesting to go home. Long discussion with patient regarding necessity for patient to stay in hospital for IV medications, he verbalizes understanding and just states he really wants to go home. Exam Vital signs and Labs for Last 24 Hours: Temp Pulse Resp BP Pulse Ox 98.0 F 106 H 18 110/71 94 L 10/26/21 08:26 10/26/21 08:00 10/26/21 08:00 10/26/21 08:00 10/26/21 08:00 Laboratory Results - last 24 hr 10/25/21 11:52: POC Glucose 190 H 10/25/21 16:18: POC Glucose 222 H 10/26/21 05:05: POC Glucose 161 H 10/26/21 05:11: WBC 8.9, RBC 4.43 L, Hgb 12.5 L, Hct 41.4 L, MCV 93.3, MCH 28.2, MCHC 30.2 L, RDW 16.9, Plt Count 235, MPV 9.1, Neut % (Auto) 73.2, Lymph % (Auto) 14.4, [place] % (Auto) 7.7, Eos % (Auto) 4.3, Baso % (Auto) 0.3, Neut # (Auto) 6.5, Lymph # (Auto) 1.3, [place] # (Auto) 0.7, Eos # (Auto) 0.4, Baso # (Auto) 0.0 10/26/21 05:11: Sodium 135 L, Potassium 4.4, Chloride 106, Carbon Dioxide 23, Anion Gap 10.4, BUN 34 H, Creatinine 1.10, Estimated Creat Clear 88, Estimated GFR 67, Est GFR ( Amer) 81, Glucose 160 H D, Calcium 7.9 L I & O for Last 24 hours: Intake & Output 10/23/21 10/24/21 10/25/21 10/26/21 23:59 23:59 23:59 23:59 Intake Total 1225 / 1225 785 / 785 240 / 240 Output Total 975 / 1475 2905 / 2905 500 / 500 Balance 250 / -250 -2120 / -2120 -260 / -260 Weight 198 lb 3.129 oz 200 lb 3.991 oz 205 lb 5.001 oz - Constitutional no acute distress - *Routine HEENT Exam Head: Present: normocephalic Eye: Present: EOMI ENT: Present: mucous membranes moist - *Routine Neck Exam Present: trachea midline. Absent: tracheal deviation - *Routine Respiratory Exam Present: rales. Absent: accessory muscle use - *Routine Cardiovascular Exam Present: RRR - *Routine Abdominal Exam Present: soft, normoactive bowel sounds. Absent: tenderness, firm - *Routine Extremities Exam Present: full ROM, pulses intact. Absent: cyanosis, clubbing - *Routine Skin Exam Present: intact, dry, warm. Absent: cyanosis, erythema - *Routine Neurological Exam Present: alert, oriented X3. Absent: motor deficit - Routine Psychiatric Exam Present: normal affect, normal thought process. Absent: tactile hallucinations Assessment and Plan (1) Angina pectoris Status: Resolved Category: Medical Code(s): I20.9 - Angina pectoris, unspecified (2) SOB (shortness of breath) Status: Acute Category: Medical Code(s): R06.02 - Shortness of breath (3) Acute on chronic systolic (congestive) heart failure Status: Acute Category: Medical Code(s): I50.23 - Acute on chronic systolic (congestive) heart failure (4) Carotid bruit Status: Acute Qualifiers: Laterality: bilateral Qualified Code(s): R09.89 - Other specified symptoms and signs involving the circulatory and respiratory systems Category: Medical Code(s): R09.89 - Other specified symptoms and signs involving the circulatory and respiratory systems (5) Hypotension Status: Resolved Qualifiers: Hypotension type: unspecified hypotension type Qualified Code(s): I95.9 - Hypotension, unspecified Category: Medical Code(s): I95.9 - Hypotension, unspecified (6) CAD (coronary artery disease) Status: Chronic Qualifiers: Coronary Disease-Associated Artery/Lesion type: [place] artery [place] vs. transplanted heart: [place] heart Associated angina: without angina Qualified Code(s): I25.10 - Atherosclerotic heart disease of [place] coronary artery without angina pectoris Category: Medical Code(s): I25.10 - Atherosclerotic heart disease of [place] coronary artery without angina pectoris (7) Cardiomyopathy Status: Chronic Qualifiers: Cardiomyopathy type: ischemic Qualified Code(s): I25.5 - Ischemic
--- NOTE | 2021-10-26 09:40 | DIET.NUTRFU ---
RD reviewed meal intake, consuming >50% on cardiac, diabetic diet. This AM consumed 100%. Requesting to go home. Cardio is still following. IV diuretic tx yesterday. Labs reviewed: BUN 34H, Cr 1.10 and glucose at 160H. Will continue to follow meal intake.
[2021-10-26 11:19] LABS: POC Glucose,Bedside 171 (70-110)
--- NOTE | 2021-10-26 11:27 | HMH.PNCARD ---
Subjective Date: 10/26/21 Time: 11:00 Principal diagnosis: systolic chf Interval history: This is a 66-year-old white gentleman who was admitted to the hospital for an acute exacerbation of his systolic congestive heart failure. The patient underwent left cardiac catheterization was found to have severely reduced ejection fraction with severely elevated LVEDP secondary to decompensated systolic congestive heart failure. The patient has been on a milrinone drip with IV Lasix. He has a -2 L fluid balance overnight. He is also on Entresto. This morning he denies any chest pain or pressure. His shortness of breath is improving. He still has fatigue. He denies any fever, chills, nausea, vomiting, diarrhea, PND or orthopnea. The patient states that he is really eager to go home. Exam Vital signs and Labs for Last 24 Hours: Temp Pulse Resp BP Pulse Ox 98.0 F 106 H 18 110/71 92 L 10/26/21 08:26 10/26/21 08:00 10/26/21 08:00 10/26/21 08:00 10/26/21 08:00 Laboratory Results - last 24 hr 10/25/21 11:52: POC Glucose 190 H 10/25/21 16:18: POC Glucose 222 H 10/26/21 05:05: POC Glucose 161 H 10/26/21 05:11: WBC 8.9, RBC 4.43 L, Hgb 12.5 L, Hct 41.4 L, MCV 93.3, MCH 28.2, MCHC 30.2 L, RDW 16.9, Plt Count 235, MPV 9.1, Neut % (Auto) 73.2, Lymph % (Auto) 14.4, [place] % (Auto) 7.7, Eos % (Auto) 4.3, Baso % (Auto) 0.3, Neut # (Auto) 6.5, Lymph # (Auto) 1.3, [place] # (Auto) 0.7, Eos # (Auto) 0.4, Baso # (Auto) 0.0 10/26/21 05:11: Sodium 135 L, Potassium 4.4, Chloride 106, Carbon Dioxide 23, Anion Gap 10.4, BUN 34 H, Creatinine 1.10, Estimated Creat Clear 88, Estimated GFR 67, Est GFR ( Amer) 81, Glucose 160 H D, Calcium 7.9 L 10/26/21 11:11: POC Glucose 171 H I & O for Last 24 hours: Intake & Output 10/23/21 10/24/21 10/25/21 10/26/21 23:59 23:59 23:59 23:59 Intake Total 1225 / 1225 785 / 785 240 / 240 Output Total 975 / 1475 2905 / 2905 500 / 500 Balance 250 / -250 -2120 / -2120 -260 / -260 Weight 198 lb 3.129 oz 200 lb 3.991 oz 205 lb 5.001 oz Narrative: Monitor strip is sinus tachycardia with a rate of 106. - Constitutional no acute distress, average body habitus - *Routine HEENT Exam Head: Present: normocephalic, atraumatic Eye: Present: EOMI, PERRL ENT: Present: mucous membranes moist - *Routine Neck Exam Present: supple, full ROM, normal carotid upstroke. Absent: JVD, carotid bruit, lymphadenopathy - *Routine Respiratory Exam Present: decreased breath sounds, rales - *Routine Cardiovascular Exam Present: RRR, Normal S1, Normal S2. Absent: murmur - *Routine Abdominal Exam Present: soft, normoactive bowel sounds. Absent: tenderness, distended - *Routine Extremities Exam Present: full ROM, pulses intact, normal capillary refill. Absent: cyanosis, clubbing, edema - *Routine Skin Exam Present: intact, warm. Absent: erythema, rash - *Routine Neurological Exam Present: alert, oriented X3, CN II-XII intact. Absent: sensory deficit, motor deficit Progress Note: A&P (1) Acute on chronic systolic (congestive) heart failure Status: Acute (2) Angina pectoris Status: Resolved (3) SOB (shortness of breath) Status: Acute (4) Hypotension Status: Resolved (5) CAD (coronary artery disease) Status: Chronic (6) Cardiomyopathy Status: Chronic (7) Diabetes mellitus Status: Chronic (8) HLD (hyperlipidemia) Status: Chronic (9) Hypertensive heart disease Status: Chronic (10) Peripheral arterial occlusive disease Status: Chronic (11) Tobacco dependence syndrome Status: Chronic (12) Elevated liver enzymes Status: Acute (13) 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 The patient was admitted to the hospital for an acute exacerbation of his systolic congestive heart failure and angina. Left cardiac catheterization revealed patent coronary artery disease. This is stable.
--- NOTE | 2021-10-26 15:00 | PC.NURSE ---
called admissions to relay that patient was now out of stepdown and in medsurg status
[2021-10-26 16:27] LABS: POC Glucose,Bedside 287 (70-110)
[2021-10-26 20:33] LABS: POC Glucose,Bedside 243 (70-110)
[2021-10-27] VITALS: BP 87/56; PULSE 100; PULSE 107; RESP 21; O2SAT 96
[2021-10-27 04:00] VITALS: BP 108/73; PULSE 105; PULSE 110; RESP 19; TEMP 37; O2SAT 96
[2021-10-27 06:08] LABS: POC Glucose,Bedside 177 (70-110)
[2021-10-27 07:06] LABS: Basophils % 0.4 % (0.1-2.0); Eosinophils # 0.5 K/mm3 (0.0-0.4); Eosinophils % 5.1 % (0.1-12.0); Hematocrit 42.8 % (42.0-52.0); Lymphocytes # 1.4 K/mm3 (0.7-4.5); Lymphocytes % 15.9 % (10-50); Mean Corpuscular HGB Conc 30.4 g/dL (31.8-35.4); Mean Corpuscular Hemoglobin 28.1 pg (27.0-31.2); Mean Corpuscular Volume 92.6 fl (80-94); Mean Platelet Volume 8.5 fl (7.4-10.4); Monocytes # 0.8 K/mm3 (0.1-1.0); Monocytes % 8.9 % (1.7-9.3); Neutrophils # 6.3 K/mm3 (1.8-7.8); Neutrophils % 69.7 % (37.0-80.0); Platelet Count 260 K/mm3 (142-424); Red Blood Count 4.62 M/mm3 (4.60-6.20); Red Cell Distribution Width 16.7 % (11.5-17.5)
[2021-10-27 07:16] LABS: Anion Gap 13.7 mEq/L (5-15); Blood Urea Nitrogen 31 mg/dl (9-20); Calcium 8.2 mg/dl (8.4-10.2); Carbon Dioxide 23 mmol/L (22.0-30.0); Chloride 101 mmol/L (98-107); Creatinine Clearance Estimated 88 mL/min (50-200); Estimated Glomerular Filt Rate 67 ml/min (>60); GFR (African American) 81 ML/MIN (>60); Glucose 191 mg/dl (74-100); Potassium 4.7 mmoL/L (3.5-5.1); Sodium 133 mmol/L (136-145)
[2021-10-27 08:00] VITALS: BP 90/53; PULSE 106; RESP 16; TEMP 36.6; O2SAT 95
--- NOTE | 2021-10-27 09:11 | HMH.DCSUM ---
General - General Admission date:: 10/21/21 Discharge date: 10/27/21 HPI HPI: Patient is a 66-year-old white male, admitted to our service with Dr. Jackson. Patient is a longstanding patient of Dr. Jackson, has history of coronary artery disease that is post stent deployment x5. Is a history of congestive heart failure, and is post AICD. Longstanding history of tobacco abuse, 1 pack/day since age 16. Comorbid diabetes, marginal control. Status post partial amputation right foot. Primary physician is Dr. Omar Munoz in [place]. Patient began to have chest pressure and heaviness on . He presented to [facility] for further evaluation. Details there are unavailable at time of dictation. He was subsequently excepted in transfer to [facility] And is currently on a Levophed drip. He is having some nausea no active chest pain, no shortness of breath. Pt is clear, lucid, neurologically intact Hospital Course Hospital Course: Patient is a 66-year-old white male, admitted to our service with Dr. Jackson. Patient is a longstanding patient of Dr. Jackson, has history of coronary artery disease that is post stent deployment x5. Is a history of congestive heart failure, and is post AICD. Longstanding history of tobacco abuse, 1 pack/day since age 16. Comorbid diabetes, marginal control. Status post partial amputation right foot. 10/22/21 CXR: FINDINGS: Tubes, catheters and devices: Cardiac pacer/ICD unchanged in appearance compared with the prior exam. Lungs: Hypoventilation/low lung volumes compared with the prior study. Patchy atelectasis in the mid and lower lungs. Slight hazy airspace opacity in the lower lungs. No focal consolidation. Pleural spaces: Small right pleural effusion, some fluid tracking along the minor fissure on the right. No pneumothorax. Heart/Mediastinum: Borderline cardiomegaly, accentuated by portable AP technique and shallow inspiration. Overlying night monitor electrodes. Vasculature: Mild calcified plaque in the aortic arch. Bones/joints: There are spinal degenerative changes, with multilevel disc narrrowing and spondylosis. IMPRESSION: 1. Hypoventilation/low lung volumes compared with the prior exam, with patchy atelectasis in the mid and lower lungs, and slight hazy air space opacity which could be pneumonia or edema. 2. Trace right pleural effusion. 3. Cardiomegaly, cardiac pacer/ICD unchanged in appearance compared with the prior exam. 4. Additional nonemergency and chronic findings as above. Electronically signed by Shonna Park MD 10/23/21 Abd/Pelvis CT: FINDINGS: Pleural spaces: Small bilateral pleural effusions . Regions of subsegmental atelectasis also identified at the lung bases. Liver: Normal. No mass. Gallbladder and bile ducts: Status post cholecystectomy. Pancreas: Normal. No ductal dilation. Spleen: Normal. No splenomegaly. Adrenal glands: Normal. No mass. Kidneys and ureters: The punctate non-obstructing calculus lower pole left kidney. Minimal bilateral perinephric stranding most consistent with chronic postinflammatory change. Stomach and bowel: Scattered colonic diverticula. No evidence of diverticulitis. Contrast mixed with school stool is identified within the colon most pronounced in the region the rectosigmoid colon. Appendix: No evidence of appendicitis. Intraperitoneal space: Unremarkable. No free air. No significant fluid collection. Vasculature: Atherosclerotic vascular calcification. Lymph nodes: Unremarkable. No enlarged lymph nodes. Urinary bladder: Unremarkable as visualized. Reproductive: Unremarkable as visualized. Bones/joints: Moderate to severe bilateral degenerative changes involving both hip joints greatest on the right. Lumbar spondylosis. Soft tissues: Small bilateral fat filled inguinal hernias. IMPRESSION: 1. Diverticulosis. No evidence of diverticulitis. 2. Demonstrat
--- NOTE | 2021-10-27 09:16 | HMH.ACPN2 ---
Internal Medicine - PN: Subj *Date: 10/27/21 *Time: 09:16 Exam Vital signs and Labs for Last 24 Hours: Temp Pulse Resp BP Pulse Ox 97.8 F 106 H 16 90/53 L 95 10/27/21 08:00 10/27/21 08:00 10/27/21 08:00 10/27/21 08:00 10/27/21 08:00 Laboratory Results - last 24 hr 10/26/21 11:11: POC Glucose 171 H 10/26/21 16:19: POC Glucose 287 H 10/26/21 19:57: POC Glucose 243 H 10/27/21 05:16: WBC 9.0, RBC 4.62, Hgb 13.0 L, Hct 42.8, MCV 92.6, MCH 28.1, MCHC 30.4 L, RDW 16.7, Plt Count 260, MPV 8.5, Neut % (Auto) 69.7, Lymph % (Auto) 15.9, [place] % (Auto) 8.9, Eos % (Auto) 5.1, Baso % (Auto) 0.4, Neut # (Auto) 6.3, Lymph # (Auto) 1.4, [place] # (Auto) 0.8, Eos # (Auto) 0.5 H, Baso # (Auto) 0.0 10/27/21 05:16: Sodium 133 L, Potassium 4.7, Chloride 101, Carbon Dioxide 23, Anion Gap 13.7, BUN 31 H, Creatinine 1.10, Estimated Creat Clear 88, Estimated GFR 67, Est GFR ( Amer) 81, Glucose 191 H, Calcium 8.2 L 10/27/21 06:01: POC Glucose 177 H I & O for Last 24 hours: Intake & Output 10/24/21 10/25/21 10/26/21 10/27/21 23:59 23:59 23:59 23:59 Intake Total 1225 / 1225 785 / 785 1060 / 1060 100 / 100 Output Total 975 / 1475 2905 / 2905 3780 / 3780 750 / 750 Balance 250 / -250 -2120 / -2120 -2720 / -2720 -650 / -650 Weight 89.9 kg 90.832 kg 93.128 kg Assessment and Plan (1) Angina pectoris Status: Resolved Category: Medical Code(s): I20.9 - Angina pectoris, unspecified (2) SOB (shortness of breath) Status: Acute Category: Medical Code(s): R06.02 - Shortness of breath (3) Acute on chronic systolic (congestive) heart failure Status: Acute Category: Medical Code(s): I50.23 - Acute on chronic systolic (congestive) heart failure (4) Carotid bruit Status: Acute Qualifiers: Qualified Code(s): R09.89 - Other specified symptoms and signs involving the circulatory and respiratory systems Category: Medical Code(s): R09.89 - Other specified symptoms and signs involving the circulatory and respiratory systems (5) Hypotension Status: Resolved Qualifiers: Qualified Code(s): I95.9 - Hypotension, unspecified Category: Medical Code(s): I95.9 - Hypotension, unspecified (6) CAD (coronary artery disease) Status: Chronic Qualifiers: Qualified Code(s): I25.10 - Atherosclerotic heart disease of [place] coronary artery without angina pectoris Category: Medical Code(s): I25.10 - Atherosclerotic heart disease of [place] coronary artery without angina pectoris (7) Cardiomyopathy Status: Chronic Qualifiers: Qualified Code(s): I25.5 - Ischemic cardiomyopathy Category: Medical Code(s): I42.9 - Cardiomyopathy, unspecified (8) Diabetes mellitus Status: Chronic Qualifiers: Qualified Code(s): E10.69 - Type 1 diabetes mellitus with other specified complication Category: Medical Code(s): E11.9 - Type 2 diabetes mellitus without complications (9) Edema Status: Chronic Qualifiers: Qualified Code(s): R60.0 - Localized edema Category: Medical Code(s): R60.9 - Edema, unspecified (10) HLD (hyperlipidemia) Status: Chronic Qualifiers: Qualified Code(s): E78.2 - Mixed hyperlipidemia Category: Medical Code(s): E78.5 - Hyperlipidemia, unspecified (11) Hypertensive heart disease Status: Chronic Qualifiers: Qualified Code(s): I11.0 - Hypertensive heart disease with heart failure; I50.23 - Acute on chronic systolic (congestive) heart failure Category: Medical Code(s): I11.9 - Hypertensive heart disease without heart failure (12) Peripheral arterial occlusive disease Status: Chronic Category: Medical Code(s): I77.9 - Disorder of arteries and arterioles, unspecified (13) Tobacco dependence syndrome Status: Chronic Category: Medical Code(s): F17.200 - Nicotine dependence, unspecified, uncomplicated (14) Renal insufficiency Status: Acute Category: Medical Code(s): N28.9 - Disorder of kidney and uret
--- NOTE | 2021-10-27 09:37 | PC.NURSE ---
pt has dressing on right foot. All toes have been previously amputated. Asked pt if I could take dressing off, assess wound, and redress area. He refused.
--- NOTE | 2021-10-27 09:49 | HMH.PHAINT ---
Discharge counseling complete. Informed pt of new medication, purpose, how to take, and possible side effects. Pt understood and had no questions or concerns.
--- NOTE | 2021-10-27 10:41 | HMH.PNCARD ---
Subjective Date: 10/27/21 Time: 10:00 Principal diagnosis: systolic chf Interval history: This is a 66-year-old white gentleman who is admitted to the hospital for an acute exacerbation of systolic congestive heart failure. The patient has been being diuresed with milrinone which was stopped yesterday and IV Lasix. He has a -2700 fluid balance overnight last night. He states that he is feeling much better. He denies any chest pain or pressure. He states his shortness of breath continues to improve. He denies any fever, chills, nausea, vomiting, diarrhea, PND or orthopnea. Exam Vital signs and Labs for Last 24 Hours: Temp Pulse Resp BP Pulse Ox 97.8 F 106 H 16 90/53 L 95 10/27/21 08:00 10/27/21 08:00 10/27/21 08:00 10/27/21 08:00 10/27/21 08:00 Laboratory Results - last 24 hr 10/26/21 11:11: POC Glucose 171 H 10/26/21 16:19: POC Glucose 287 H 10/26/21 19:57: POC Glucose 243 H 10/27/21 05:16: WBC 9.0, RBC 4.62, Hgb 13.0 L, Hct 42.8, MCV 92.6, MCH 28.1, MCHC 30.4 L, RDW 16.7, Plt Count 260, MPV 8.5, Neut % (Auto) 69.7, Lymph % (Auto) 15.9, [place] % (Auto) 8.9, Eos % (Auto) 5.1, Baso % (Auto) 0.4, Neut # (Auto) 6.3, Lymph # (Auto) 1.4, [place] # (Auto) 0.8, Eos # (Auto) 0.5 H, Baso # (Auto) 0.0 10/27/21 05:16: Sodium 133 L, Potassium 4.7, Chloride 101, Carbon Dioxide 23, Anion Gap 13.7, BUN 31 H, Creatinine 1.10, Estimated Creat Clear 88, Estimated GFR 67, Est GFR ( Amer) 81, Glucose 191 H, Calcium 8.2 L 10/27/21 06:01: POC Glucose 177 H I & O for Last 24 hours: Intake & Output 10/24/21 10/25/21 10/26/21 03/17/22 23:59 23:59 23:59 23:59 Intake Total 1225 / 1225 785 / 785 1060 / 1060 580 / 580 Output Total 975 / 1475 2905 / 2905 3780 / 3780 750 / 750 Balance 250 / -250 -2120 / -2120 -2720 / -2720 -170 / -170 Weight 198 lb 3.129 oz 200 lb 3.991 oz 205 lb 5.001 oz Narrative: Strip is sinus tachycardia with a rate of 100. - Constitutional no acute distress, average body habitus - *Routine HEENT Exam Head: Present: normocephalic, atraumatic Eye: Present: EOMI, PERRL ENT: Present: mucous membranes moist - *Routine Neck Exam Present: supple, full ROM, normal carotid upstroke. Absent: JVD, carotid bruit, lymphadenopathy - *Routine Respiratory Exam Present: rales - *Routine Cardiovascular Exam Present: RRR, Normal S1, Normal S2, tachycardia. Absent: murmur - *Routine Abdominal Exam Present: soft, normoactive bowel sounds. Absent: tenderness, distended, rebound - *Routine Extremities Exam Present: full ROM, pulses intact, normal capillary refill, amputation (Partial amputation of the right foot). Absent: cyanosis, clubbing, edema - *Routine Skin Exam Present: intact, warm. Absent: erythema, rash - *Routine Neurological Exam Present: alert, oriented X3, CN II-XII intact. Absent: sensory deficit, motor deficit Progress Note: A&P (1) Acute on chronic systolic (congestive) heart failure Status: Acute (2) Angina pectoris Status: Resolved (3) SOB (shortness of breath) Status: Acute (4) Hypotension Status: Resolved (5) CAD (coronary artery disease) Status: Chronic (6) Cardiomyopathy Status: Chronic (7) Diabetes mellitus Status: Chronic (8) HLD (hyperlipidemia) Status: Chronic (9) Hypertensive heart disease Status: Chronic (10) Peripheral arterial occlusive disease Status: Chronic (11) Tobacco dependence syndrome Status: Chronic (12) Renal insufficiency Status: Acute (13) Elevated liver enzymes Status: Acute (14) 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 The patient was admitted to the hospital for an acute exacerbation of his systolic congestive heart failure. The patient was diuresed with milrinone which has been stopped. He was also diuresed with IV Lasix. He is a -2700 mL fluid balance overnight. He states his shortness of breath is signifi
--- NOTE | 2021-10-27 10:56 | SW/DCPLANNER ---
This patient will discharge home today and is agreeable to home health services. Patient information/order has been faxed to [facility] at this time.
--- NOTE | 2021-10-28 14:33 | CARE MANAGER ---
Patient states that he is feeling much better, and has no needs at this time. He got his medication and has a follow-up appointment next week with Dr. Jackson. No needs at this time.
== END 2021-10-27 11:24 | disposition home or self-care (01) | DRG 286 ==
PROVIDERS: Emergency Medicine; Family Medicine; Internal Medicine; Nurse Practitioner Family; Podiatrist; Admitting Provider Family Medicine; PCP Family Medicine; Visit Provider Family Medicine
PROC: B2111ZZ Fluoroscopy of Multiple Coronary Arteries using Low Osmolar Contrast (ICD-10-PCS; principal; 2021-10-24 12:00)
DX: I11.0 Hypertensive heart disease with heart failure (principal); I50.23 Acute on chronic systolic (congestive) heart failure; I25.110 Atherosclerotic heart disease of native coronary artery with unstable angina pectoris; I42.9 Cardiomyopathy, unspecified; I95.9 Hypotension, unspecified; E78.2 Mixed hyperlipidemia; E11.51 Type 2 diabetes mellitus with diabetic peripheral angiopathy without gangrene; N28.9 Disorder of kidney and ureter, unspecified; Z89.431 Acquired absence of right foot; Z20.822 Contact with and (suspected) exposure to COVID-19; F17.210 Nicotine dependence, cigarettes, uncomplicated; Z95.5 Presence of coronary angioplasty implant and graft; Z79.4 Long term (current) use of insulin
CPT/HCPCS: 36415; 71045; 73630; 74176; 80048; 80053; 80061; 82810; 82962; 83036; 83690; 83880; 84484; 85007; 85014; 85018; 85025; 85048; 85049; 85651; 86140; 93005; 93306; 93460; 93880; 97162; 97166; 99152; 99153; C1725; C1769; C1894; C9803; J0456; J0696; J1644; J2260; J2405; Q9967; U0003; U0005

== ENCOUNTER → 2022-04-24 15:23 | Outpatient (CLI) | payer MEDICARE, SELFPAY ==
[2022-04-24 21:09] LABS: Prostate Specific Ag Screen 1.5 ng/ml (0.0-4.0)
== END ==
PROVIDERS: PCP Family Medicine; Visit Provider Urology
DX: Z12.5 Encounter for screening for malignant neoplasm of prostate (principal)
CPT/HCPCS: 36415; G0103

== ENCOUNTER 2023-09-20 10:59 | Outpatient (CLI) | payer MEDICARE, MEDICAID, SELFPAY ==
[2023-09-20 11:45] LABS: Basophils % 0.3 % (0.1-2.0); Eosinophils # 0.4 K/mm3 (0.0-0.4); Eosinophils % 3.3 % (0.1-12.0); Hematocrit 49.9 % (42.0-52.0); Hemoglobin 15.9 g/dL (14.1-18.0); Lymphocytes # 2.7 K/mm3 (0.7-4.5); Lymphocytes % 22.1 % (10-50); Mean Corpuscular Volume 90.9 fl (80-94); Mean Platelet Volume 8.6 fl (7.4-10.4); Monocytes # 0.8 K/mm3 (0.1-1.0); Monocytes % 6.2 % (1.7-9.3); Neutrophils # 8.3 K/mm3 (1.8-7.8); Neutrophils % 68.1 % (37.0-80.0); Platelet Count 256 K/mm3 (142-424); Red Blood Count 5.49 M/mm3 (4.60-6.20); White Blood Count 12.2 K/mm3 (4.8-10.8)
[2023-09-20 11:53] LABS: Alanine Aminotransferase 35 U/L (12-78); Albumin Level 3.8 g/dl (3.5-5.0); Alkaline Phosphatase 119 U/L (38-126); Anion Gap 10.6 mEq/L (5-15); Aspartate Amino Transferase 27 U/L (17-59); Bilirubin,Direct 0.2 mg/dl (0.0-0.4); Bilirubin,Indirect 0.2 mg/dL (0.0-0.9); Bilirubin,Total 0.4 mg/dl (0.2-1.3); Bilirubin,Unconjugated 0.2 mg/dL (0.0-1.1); Blood Urea Nitrogen 18 mg/dl (9-20); Calcium 9.1 mg/dl (8.4-10.2); Carbon Dioxide 29 mmol/L (22.0-30.0); Chloride 104 mmol/L (98-107); Chol/HDL Ratio 11.8 (1-3.5); Cholesterol 247 mg/dl (140-200); Estimated Glomerular Filt Rate 55 ml/min (>60); GFR (African American) 67 ML/MIN (>60); Glucose 170 mg/dl (74-100); HDL Cholesterol 21 mg/dl (40-60); Potassium 3.6 mmoL/L (3.5-5.1); Sodium 140 mmol/L (136-145); Total Protein,Serum 6.6 g/dl (6.3-8.2)
[2023-09-20 12:04] LABS: Triglycerides 836 mg/dl (30-150)
[2023-09-20 12:08] LABS: Free T4 (Free Thyroxine) 0.85 ng/dl (0.78-2.19)
[2023-09-20 12:22] LABS: Thyroid Stimulating Hormone 1.12 uIU/mL (0.465-4.68)
== END 2023-09-20 23:59 ==
PROVIDERS: PCP Family Medicine; Visit Provider Physician Assistant
DX: N28.9 Disorder of kidney and ureter, unspecified (principal); I50.9 Heart failure, unspecified; R06.00 Dyspnea, unspecified; E78.5 Hyperlipidemia, unspecified; F17.200 Nicotine dependence, unspecified, uncomplicated; I11.0 Hypertensive heart disease with heart failure; I25.10 Atherosclerotic heart disease of native coronary artery without angina pectoris; I42.9 Cardiomyopathy, unspecified; I50.20 Unspecified systolic (congestive) heart failure; I77.9 Disorder of arteries and arterioles, unspecified; E11.9 Type 2 diabetes mellitus without complications; Z79.84 Long term (current) use of oral hypoglycemic drugs; Z79.899 Other long term (current) drug therapy
CPT/HCPCS: 36415; 80048; 80061; 80076; 84439; 84443; 85025

== ENCOUNTER 2024-06-26 12:45 | Outpatient (CLI) | payer MEDICARE, MEDICAID, SELFPAY ==
--- NOTE | 2024-06-26 12:49 | CA_ITS ---
APPROVED REPORT EXAM: Comprehensive 2D, Doppler, and color-flow Echocardiogram Pipe Coremaker: Ivonne Neff CRT Ht: 5 ft 10 in Wt: 175lbs BSA: 1.97 BP: 95/52 mmHg Indications: HYPOTENSION, CAD, HF, CM, AICD, CM EF 25% ECHO 10/24/21 Left Ventricle The left ventricle is moderately dilated. The left ventricular systolic function is severely reduced. There is normal left ventricular wall thickness. There is severe global hypokinesis present. Grade 3 diastolic dysfunction is present. LVEF is 15%. Right Ventricle The right ventricle is normal size. The right ventricular systolic function is normal. There is a device lead in the right ventricle. Atria The left atrium is mildly dilated. The right atrium size is normal. There is no Doppler evidence of interatrial shunt. Aortic Valve The aortic valve is mildly thickened. There is no aortic valvular stenosis. No aortic regurgitation is present. Mitral Valve The mitral valve is normal in structure. No evidence of mitral valve stenosis. Trace mitral regurgitation. Tricuspid Valve Tricuspid valve is grossly normal in structure and function. Trace tricuspid regurgitation. There is insufficient TR jet to estimate RVSP. Pulmonic Valve The pulmonary valve is normal in structure. Trace pulmonic regurgitation. Great Vessels The aortic root is normal in size. The ascending aorta is not well-visualized. IVC is normal in size and collapses >50% with inspiration. Pericardium There is no pericardial effusion. Other Information Study Quality: Fair Conclusion Moderate LV dilation with severe reduction in LV systolic function (LVEF 15%). Grade 3 diastolic dysfunction is present. Mild LA dilation. No significant valvular stenosis or regurgitation. Electronically signed by : Emma Saldaña MD 07/07/2024 12:23:37
== END 2024-06-26 23:59 | disposition home or self-care (01) ==
LOC: RT 12:46
PROVIDERS: PCP Nurse Practitioner Family; Visit Provider Nurse Practitioner Family
DX: I51.7 Cardiomegaly (principal); R55 Syncope and collapse; I95.9 Hypotension, unspecified
CPT/HCPCS: 93306

== ENCOUNTER 2024-07-08 11:20 | Outpatient (CLI) | payer MEDICARE, MEDICAID, SELFPAY ==
[2024-07-08 11:49] LABS: Basophils # 0.2 K/mm3 (0-0.2); Basophils % 1.3 % (0.1-2.0); Eosinophils # 0.7 K/mm3 (0.0-0.4); Eosinophils % 6.1 % (0.1-12.0); Hematocrit 50.3 % (42.0-52.0); Hemoglobin 16.2 g/dL (14.1-18.0); Lymphocytes # 2.7 K/mm3 (0.7-4.5); Lymphocytes % 23.3 % (10-50); Mean Corpuscular HGB Conc 32.2 g/dL (31.8-35.4); Mean Corpuscular Volume 93.1 fl (80-94); Mean Platelet Volume 9.1 fl (7.4-10.4); Monocytes # 0.8 K/mm3 (0.1-1.0); Monocytes % 7.2 % (1.7-9.3); Neutrophils # 7.2 K/mm3 (1.8-7.8); Neutrophils % 62.1 % (37.0-80.0); Platelet Count 192 K/mm3 (142-424); Red Cell Distribution Width 15.7 % (11.5-17.5); White Blood Count 11.6 K/mm3 (4.8-10.8)
[2024-07-08 12:24] LABS: Chloride 106 mmol/L (98-107); Sodium 142 mmol/L (136-145)
[2024-07-08 12:26] LABS: Bilirubin,Unconjugated 0.3 mg/dL (0.0-1.1); Blood Urea Nitrogen 17 mg/dl (9-20); Carbon Dioxide 26 mmol/L (22.0-30.0); Estimated Glomerular Filt Rate 55 ml/min (>60); GFR (African American) 67 ML/MIN (>60)
[2024-07-08 12:27] LABS: Alanine Aminotransferase 15 U/L (12-78); Alkaline Phosphatase 75 U/L (38-126); Aspartate Amino Transferase 23 U/L (17-59); Bilirubin,Direct 0.3 mg/dl (0.0-0.4); Bilirubin,Indirect 0.3 mg/dL (0.0-0.9); Bilirubin,Total 0.6 mg/dl (0.2-1.3); Calcium 9.5 mg/dl (8.4-10.2); Chol/HDL Ratio 8.1 (1-3.5); Cholesterol 219 mg/dl (140-200); Glucose 102 mg/dl (74-100); HDL Cholesterol 27 mg/dl (40-60); Magnesium 2.2 mg/dl (1.6-2.3); Total Protein,Serum 6.8 g/dl (6.3-8.2)
[2024-07-08 12:28] LABS: Triglycerides 423 mg/dl (30-150)
[2024-07-08 12:58] LABS: Thyroid Stimulating Hormone 1.43 uIU/mL (0.465-4.68)
[2024-07-08 18:34] LABS: Free T4 (Free Thyroxine) 0.97 ng/dl (0.78-2.19)
== END 2024-07-08 23:59 | disposition home or self-care (01) ==
PROVIDERS: PCP Nurse Practitioner Family; Visit Provider Nurse Practitioner Family
DX: I42.9 Cardiomyopathy, unspecified (principal); R93.1 Abnormal findings on diagnostic imaging of heart and coronary circulation; I50.20 Unspecified systolic (congestive) heart failure; I95.9 Hypotension, unspecified; I50.9 Heart failure, unspecified; E78.2 Mixed hyperlipidemia; I25.118 Atherosclerotic heart disease of native coronary artery with other forms of angina pectoris; I25.5 Ischemic cardiomyopathy
CPT/HCPCS: 36415; 80048; 80061; 80076; 83735; 84439; 84443; 85025

== ENCOUNTER 2024-07-17 08:37 | Day surgery (SDC) | payer MEDICARE, MEDICAID, SELFPAY ==
[2024-07-17] VITALS (11 sets, daily range): BP systolic 91–117; BP diastolic 52–73; PULSE 80–89; RESP 18–20; O2SAT 93–99; BMI 24.8
--- NOTE | 2024-07-17 07:05 | IR_ITS ---
APPROVED REPORT Patient Location: Outpatient Senior Research Manager: KATHLEEN Gomez RT (R) PROCEDURES Selective coronary angiogram INDICATION Known ischemic heart disease, Interval decline in ejection fraction with new onset systolic heart failure Informed consent was obtained prior to the procedure. COMPLICATIONS NONE Estimated Blood Loss: LESS THAN 10 ML TECHNIQUE One percent lidocaine used to anesthetize the right anterior aspect of the wrist. The right radial artery was accessed via the Seldinger technique. A 6 Fijian sheath was placed in the right radial artery. 2.5 mg of Verapamil, 800 mcg of nitroglycerin, 1mg Lidocaine and 5000 U Heparin were given through the arterial sheath. The 6 Fijian JL 3 guide catheter selective coronary angiogram. At the end of the procedure the sheath was removed good hemostasis was achieved using Traclet band, patient was transferred to the postop holding area in stable condition. ANGIOGRAPHIC RESULTS The left main artery Is patent The left anterior descending artery Has stents in the proximal through mid segment. There is moderate concentric in-stent restenosis in the proximal segment and mild to moderate within the mid segment. ALIA-3 flow was present throughout the LAD. The mid LAD has an additional 40 to 50% eccentric stenosis. A large first diagonal artery has an ostial 60% concentric stenosis accompanied by ALIA-3 flow The circumflex artery Is nondominant small caliber and has proximal 40% stenoses with mid vessel 60 to 70% stenosis between the first and second obtuse marginal artery. Both second and third obtuse marginal arteries have proximal 60% stenoses however the second obtuse marginal artery is 1.75 mm in diameter while the third obtuse marginal artery is 2 mm in diameter The right coronary artery Is dominant has stent in the proximal segment which is widely patent with minimal concentric in-stent restenosis. There are diffuse 20 and 30% stenoses throughout the mid and distal segments. The posterior descending artery has a proximal eccentric 60 to 70% stenosis with the vessel being 2 mm in diameter. The posterior lateral branch is small caliber and patent The [place] ventriculogram reveals Not performed The left ventricular end-diastolic pressure Not measured IMPRESSION Coronary artery disease as described above which does not explain patient's cardiomyopathy PLAN 1. Standard therapy for systolic heart failure 2. Consideration of cardiac MRI if can be performed with AICD placement Electronically signed by : Paxton Jackson MD 07/17/2024 12:48:23
[2024-07-17 09:11] LABS: Basophils # 0.2 K/mm3 (0-0.2); Basophils % 1.4 % (0.1-2.0); Eosinophils # 0.9 K/mm3 (0.0-0.4); Eosinophils % 6.5 % (0.1-12.0); Hematocrit 52.8 % (42.0-52.0); Lymphocytes # 2.9 K/mm3 (0.7-4.5); Lymphocytes % 21.8 % (10-50); Mean Corpuscular HGB Conc 32.2 g/dL (31.8-35.4); Mean Corpuscular Hemoglobin 30.2 pg (27.0-31.2); Mean Corpuscular Volume 93.7 fl (80-94); Mean Platelet Volume 9.1 fl (7.4-10.4); Monocytes # 0.7 K/mm3 (0.1-1.0); Monocytes % 5.3 % (1.7-9.3); Neutrophils # 8.6 K/mm3 (1.8-7.8); Neutrophils % 65.1 % (37.0-80.0); Platelet Count 261 K/mm3 (142-424); Red Blood Count 5.63 M/mm3 (4.60-6.20); White Blood Count 13.2 K/mm3 (4.8-10.8)
[2024-07-17 09:32] LABS: Anion Gap 12.5 mEq/L (5-15); Blood Urea Nitrogen 21 mg/dl (9-20); Calcium 9.5 mg/dl (8.4-10.2); Carbon Dioxide 30 mmol/L (22.0-30.0); Chloride 104 mmol/L (98-107); Creatinine Clearance Estimated 66 mL/min (50-200); Estimated Glomerular Filt Rate 60 ml/min (>60); GFR (African American) 73 ML/MIN (>60); Glucose 117 mg/dl (74-100); Potassium 5.5 mmoL/L (3.5-5.1); Sodium 141 mmol/L (136-145)
[2024-07-17] MEDS: VERAPAMIL 2.5MG/ML 2ML VIAL 2.5 MG IV (11:43)
[2024-07-17] MEDS: LIDOCAINE 1% 10ML MDV 20 ML IJ (11:44)
[2024-07-17] MEDS: HEPARIN 1,000 UNITS/ML 10ML VIAL (CATH LAB) 10000 UNIT IV (11:44)
[2024-07-17] MEDS: HEPARIN 1,000 UNITS/500ML NS (CATH LAB) 3000 UNIT IV (11:44)
[2024-07-17] MEDS: NITROGLYCERIN 800MCG/8ML SYR (CATH LAB) 800 MCG IA (11:44)
[2024-07-17] MEDS: 0.9 % SODIUM CHLORIDE 500 ML 25 ML IV (11:45)
[2024-07-17] MEDS: MIDAZOLAM HCL 1MG/ML 5ML VIAL 1 MG IV (12:07)
[2024-07-17] MEDS: FENTANYL 100MCG/2ML VIAL 50 MCG IV (12:08)
[2024-07-17] MEDS: IOPAMIDOL-370 (76%);100ML BOTTLE 50 ML IV (14:49)
== END 2024-07-17 15:17 | disposition home or self-care (01) ==
PROVIDERS: PCP Nurse Practitioner Family; Visit Provider Internal Medicine
DX: I25.118 Atherosclerotic heart disease of native coronary artery with other forms of angina pectoris (principal); T82.855A Stenosis of coronary artery stent, initial encounter; I11.0 Hypertensive heart disease with heart failure; I50.20 Unspecified systolic (congestive) heart failure; R93.1 Abnormal findings on diagnostic imaging of heart and coronary circulation; I95.9 Hypotension, unspecified; E78.2 Mixed hyperlipidemia; I25.5 Ischemic cardiomyopathy; Y83.1 Surgical operation with implant of artificial internal device as the cause of abnormal reaction of the patient, or of later complication, without mention of misadventure at the time of the procedure
CPT/HCPCS: 80048; 85025; 93458; 99152; C1725; C1769; J1644; J2250; J3010; Q9967

== ENCOUNTER 2024-08-07 10:33 | Outpatient (CLI) | payer MEDICARE, MEDICAID, SELFPAY ==
--- NOTE | 2024-08-07 10:35 | CA_ITS ---
APPROVED REPORT EXAM: Limited 2D Echocardiogram Business Development Agent: Floresita Mckeon RVT Ht: 5 ft 10 in Wt: 175lbs BSA: 1.97 BP: 100/68 mmHg Indications: EF CHECK,EF OF 15% ON 06/26/24,CAD,CM,HTN,HLD,SMOKER M-Mode Dimensions RVDd 5.69 cm (0.9-2.6) LVDd 6.82 cm (3.5-5.7) LVDs 6.00 cm (3.5-5.7) IVSd 0.46 cm (0.6-1.1) PWd 0.87 cm (0.6-1.1) EF (Teich) 25.20% FS 12.00% EDV (Teich) 240.80 mL ESV (Teich) 180.00 mL Other Information Study Quality: Adequate Conclusion This is a limited TTE to evaluate for LV systolic function. Limited windows were obtained. The left ventricle is normal in size. There is normal LV wall thickness. The septum is asynchronnous. There is severe reduction in global LV systolic function. LVEF is 15%. Compared to prior study from 06/2024, there is no change in LVEF. Electronically signed by : Emma Saldaña MD 08/08/2024 12:37:16
== END 2024-08-07 23:59 | disposition home or self-care (01) ==
LOC: RT 10:34
PROVIDERS: PCP Nurse Practitioner Family; Visit Provider Physician Assistant
DX: I25.10 Atherosclerotic heart disease of native coronary artery without angina pectoris (principal); I50.20 Unspecified systolic (congestive) heart failure
CPT/HCPCS: 93308

== ENCOUNTER 2025-02-02 09:09 | Day surgery (SDC) | payer MEDICARE, MEDICAID, SELFPAY ==
--- NOTE | 2025-02-02 07:56 | IR_ITS ---
APPROVED REPORT Patient Location: Outpatient Fashion Show Director: KATHLEEN Espinal RT (R) PROCEDURES Pocket Revision Removal of old Pacemaker Implant of Permanent Pacemaker INDICATION End of battery life Informed consent was obtained prior to the procedure. COMPLICATIONS None Estimated Blood Loss: Less than 10 mls TECHNIQUE 1% lidocaine with epinephrine used to anesthetize the left anterior aspect of the chest. Scalpel was used to make the initial cutaneous incision and then used to dissect down to the existing pacemaker generator. The generator was removed from the existing pocket. Digital manipulation was required along with intermittent usage of scalpel in order to revise the pocket. The leads were removed from the old generator. The new generator was screwed to the existing leads and secured into place. Electronic interrogation proved acceptable thresholds and voltage within the lead. Antibiotics were used to flush the pocket and the pacemaker was secured using 3-0 silk into the newly revised pocket. Monocryl was used to close the subcutaneous tissue and then ruth were placed on the cutaneous area in order to approximate the incision. Patient was transferred to the postop holding area in stable condition. INTERROGATION Explanted Generator Model number: Cortes MACEDO 2357-40Q Explanted Generator Serial number: [id number] Implanted Generator Model number: Chaparro MACEDO, [id number] Implanted Generator Serial number: [id number] Atrial lead model number: SJM 1882TC, 52cm Atrial lead serial number: [id number] P-wave: >5mV Impedance: 400 ohms Threshold: 0.875V@0.5ms Right Ventricular lead model number: SJM [id number], 58cm Right Ventricular lead serial number: [id number] R-wave: >12mV Impedance: 400 ohms Threshold: 1.5@0.5ms Pacing Parameters: Mode: DDDR Base/Max Track:60 ppm / 130 ppm No diaphragmatic stimulation at 10 volts. IMPRESSION Successful Pocket Revision Successful Removal of old Pacemaker Successful Implant of Permanent Pacemaker PLAN 1. Post op wound care Electronically signed by : Paxton Jackson MD 02/02/2025 13:09:46
[2025-02-02 09:11] VITALS: BMI 26.2
[2025-02-02 09:39] LABS: Basophils # 0.1 K/mm3 (0-0.2); Basophils % 0.9 % (0.1-2.0); Eosinophils # 0.5 Kmm3 (0.0-0.4); Eosinophils % 4.1 % (0.1-12.0); Hematocrit 50.7 % (42.0-52.0); Hemoglobin 16.1 g/dL (14.1-18.0); Immature Granulocytes # 0.06 10^3uL; Immature Granulocytes % 0.5 %; Lymphocytes # 2.9 K/mm3 (0.7-4.5); Mean Corpuscular HGB Conc 31.8 g/dL (31.8-35.4); Mean Corpuscular Hemoglobin 29.1 pg (27.0-31.2); Mean Corpuscular Volume 91.7 fl (80-94); Mean Platelet Volume 10.8 fl (7.4-10.4); Monocytes # 1.2 K/mm3 (0.1-1.0); Monocytes % 9.1 % (1.7-9.3); Neutrophils # 8.3 K/mm3 (1.8-7.8); Neutrophils % 63.4 % (37.0-80.0); Nucleated Red Blood Cells # 0 10^3/uL; Nucleated Red Blood Cells % 0 %; Platelet Count 294 K/mm3 (142-424); Red Blood Count 5.53 M/mm3 (4.60-6.20); Red Cell Distribution Width 16.1 % (11.5-17.5); White Blood Count 13.1 K/mm3 (4.8-10.8)
[2025-02-02 09:44] VITALS: PULSE 90
[2025-02-02 09:57] LABS: Chloride 98 mmol/L (98-107); Sodium 139 mmol/L (136-145)
[2025-02-02 09:58] LABS: Potassium 3.9 mmoL/L (3.5-5.1)
[2025-02-02 10:00] LABS: Blood Urea Nitrogen 20 mg/dl (9-20); Creatinine Clearance Estimated 64 mL/min (50-200); Estimated Glomerular Filt Rate 55 ml/min (>60); GFR (African American) 66 ML/MIN (>60)
[2025-02-02 10:01] LABS: Anion Gap 14.9 mEq/L (5-15); Calcium 9.3 mg/dl (8.4-10.2); Carbon Dioxide 30 mmol/L (22.0-30.0); Glucose 154 mg/dl (74-100)
[2025-02-02] MEDS: 0.9 % SODIUM CHLORIDE 1000ML 1,000 ML 25 ML IV (11:49)
[2025-02-02] MEDS: CEFAZOLIN SODIUM 1 GM in 0.9 % SODIUM CHLORIDE 50 ML IV (11:49)
[2025-02-02] MEDS: LIDOCAINE 1% W/EPI 1:100,000 20ML VIAL 20 ML SQ (11:50)
[2025-02-02] MEDS: MIDAZOLAM 2MG/2ML VIAL 1 MG IV (11:54)
[2025-02-02] MEDS: CEFAZOLIN 1GM VIAL 1 GM TP (12:10)
[2025-02-02] MEDS: PROPOFOL 10MG/ML 20ML VIAL 240 MG IV (12:33)
[2025-02-02 12:39] VITALS: BP 103/64; PULSE 96; RESP 20; O2SAT 90
[2025-02-02 12:58] VITALS: BP 116/72; PULSE 93; RESP 20; O2SAT 90
== END 2025-02-02 13:05 | disposition home or self-care (01) ==
LOC: CATHLAB 09:09
PROVIDERS: PCP Nurse Practitioner Family; Visit Provider Internal Medicine
PROC: 0JPT0PZ Removal of Cardiac Rhythm Related Device from Trunk Subcutaneous Tissue and Fascia, Open Approach (ICD-10-PCS; principal; 2025-02-02 08:30)
PROC: 0JWT0PZ Revision of Cardiac Rhythm Related Device in Trunk Subcutaneous Tissue and Fascia, Open Approach (ICD-10-PCS; CPT 33223; 2025-02-02 08:30)
DX: Z45.02 Encounter for adjustment and management of automatic implantable cardiac defibrillator (principal); I11.0 Hypertensive heart disease with heart failure; I50.23 Acute on chronic systolic (congestive) heart failure; I25.10 Atherosclerotic heart disease of native coronary artery without angina pectoris; E78.5 Hyperlipidemia, unspecified; E11.9 Type 2 diabetes mellitus without complications; I73.9 Peripheral vascular disease, unspecified; N28.9 Disorder of kidney and ureter, unspecified; Z87.891 Personal history of nicotine dependence; Z79.82 Long term (current) use of aspirin; Z79.84 Long term (current) use of oral hypoglycemic drugs; Z79.85 Long-term (current) use of injectable non-insulin antidiabetic drugs; Z79.4 Long term (current) use of insulin; Z79.899 Other long term (current) drug therapy; Z88.7 Allergy status to serum and vaccine
CPT/HCPCS: 33222; 33263; 80048; 85025; 99152; 99153; C1721; J2004; J2250; J2704; J7030